=== PATIENT | female | born 1945 | race Hispanic/Latino ===

== ENCOUNTER 2025-08-28 23:49 | Inpatient (IN) | payer OTHER ==
[~2025-08-28] VITALS: Ht 165.1 cm; Wt 80.0 kg
--- NOTE | 2025-08-29 00:21 | EKG ---
[facility] Test Date: 2025-08-28 Test Time: 23:54:40 Pat Name: DOMINICK MOSS Department: [facility] Room: 207 Gender: F Lang Path Therapist: [id number] : [id number] Requested By: ANNY BECERRA Order Number: [id number] Reading MD: Margo Gregg Measurements Intervals [place] Rate: 75 P: 32 [place]: 149 QRS: -2 QRSD: 99 T: 43 QT: 381 QTc: 427 Interpretive Statements Sinus rhythm No previous ECG available for comparison Electronically Signed On 08-29-2025 13:12:34 DRAFTING LAYOUT MAN by Margo Gregg Please click the below link to view image of tracing.
[2025-08-29 00:33] LABS: CREATININE 0.9 mg/dL (0.5-1.0); GLOMERULAR FILTR. RATE CALC 65.0 mL/min (>90); GLUCOSE,RANDOM 172.0 mg/dL (70-105); SODIUM SERUM 139.0 mmol/L (136-145); UREA NITROGEN, BLOOD 13.0 mg/dL (7-18)
[2025-08-29 00:38] LABS: CREATINE KINASE, TOTAL 52.0 U/L (21-232); INR 1.0 (0.85-1.15)
[2025-08-29] MEDS: ASPIRIN 325MG TAB PO ONE (00:40)
[2025-08-29 00:45] LABS: APPEARANCE,URINE CLEAR (CLEAR); GLUCOSE, URINE (UA) NEGATIVE (NEGATIVE); LEUKOCYTE ESTERASE ,URINE NEGATIVE Leu/uL (NEGATIVE); NITRATE,URINE NEGATIVE (NEGATIVE); OCCULT BLOOD,URINE NEGATIVE (NEGATIVE)
[2025-08-29 00:48] LABS: ADD UA MICROSCOPIC NO
--- NOTE | 2025-08-29 00:56 | ERN ---
ED Note History of Present Illness Stated Complaint: CHEST PRESSURE Chief Complaint: Chest Pain Time Seen by MD: 23:55 Time Seen by Midlevel: 23:55 Dictation: The patient is a 80-year-old female with a history of hyperlipidemia, hypertension who presents to the emergency department with complaints of chest pressure onset an hour and a half ago. Patient arrived via EMS. EMS reported a heart rate of 160s to 200s on arrival. AFib with RVR. Reports they gave 20 mg of Cardizem and 400 bolus of NS. Patient denies any history of AFib, does not report any use of blood thinner. Patient reports chest pressure resolved after administration of medications by EMS. Denies any upper respiratory symptoms, denies any shortness of breath. Allergies: Coded Allergies: No Known Drug Allergies (Unverified Allergy, Unknown, 08/29/25) Past Medical History Past Medical History: High Cholesterol, Heart Disease, Hypertension Surgical History: Unknown RN Note Reviewed/Agreed w/PFSH: Yes Review of System Dictation Constitutional: Negative for fever,chills, and weight loss Eyes: Negative for injury, pain,redness, and discharge ENT: Negative for injury,pain or swelling Cardiovascular: Negative for palpitations, and edema positive for chest pain Respiratory: Negative for shortness of breath, cough, and wheezing, Abdomen/GI: Negative for abdominal pain, nausea, vomiting, diarrhea, and constip ation Back: Negative for injury and pain : Negative for injury, bleeding and discharge MS/Extremity: Negative for injury and deformity Skin: Negative for rash, and discoloration Neuro: Negative for headache, weakness, numbness, tingling, and seizure Psych: Negative for suicide ideation, homicidal ideation, and hallucinations Initial Vital Sign VS Vital Signs Date Time Temp Pulse Resp B/P (MAP) Pulse Ox O2 Delivery O2 Flow Rate FiO2 08/28/25 23:54 99.1 80 16 121/62 95 Room Air 0 08/29/25 00:18 21 Physical Exam Dictation Vital Signs reviewed General Appearance: Alert, oriented x 3, no acute distress, well developed, nourished. Head and Face: non-traumatic. Eyes: PERRL, pink conjunctivas, eyelid no trauma, anterior chamber with arcus senilis. Ears: Pinnas intact and no signs of trauma or erythema ear canals clear and no discharge TM no erythema Nose: No discharge, no bleeding. Oropharynx: Mouth normal, tongue pink. pharynx clear,no erythema, tonsils no exudates, no abscesses noted, mucous membrane moist Neck: Supple, non-tender, no thyromegaly, no masses, no JVD, no bruits Breast:Deferred Chest:No tenderness, no crepitus, no paradoxical movement, no retractions Lungs:Clear, well-ventilated, symmetric, no rales, no wheezing, no rhonchi, no stridor, good breath sounds bilaterally Heart: Regular rate, regular rhythm, no murmur, no gallops Vascular: no peripheral edema, Abdomen: Soft, positive bowel sounds, nondistended, no guarding, nontender, no rebound, no masses no hepatomegaly, no splenomegaly, no Llamas's sign, no hernias. Rectal: Deferred Genital: Deferred Neurological: Normal speech, motor function intact, sensory function intact Musculoskeletal: Neck nontender, full range of motion, back nontender, full range of motion, Extremities: nontender, full range of motion Skin: Color pink, dry, no turgor, no rash, no lacerations, no abrasions, no contusions. Lymphatic: Deferred Results (Laboratory/Radiology) Laboratory/Radiology Laboratory Tests Test 08/29/25 00:17 08/29/25 00:34 White Blood Count 7.3 K/uL (4.8-10.8) Red Blood Count 4.41 MIL/uL (4.00-5.50) Hemoglobin 13.5 g/dL (12.0-16.0) Hematocrit 41.1 % (36-48) Mean Corpuscular Volume 93.2 fL (79-99) Mean Corpuscular Hemoglobin 30.6 pg (27.0-33.0) Mean Corpuscular Hemoglobin Concent 32.8 g/dL (32.0-36.0) Red Cell Distribution Width 13.0 % (11.0-15.5) Platelet Count 246 K/uL (130-400) Mean Platelet Volume 10.9 fL (7.5-10.5) H Immature Granulocyte % (Auto) 0.3 % (0-1) Neutrophils (%) (Auto) 63.1 % (40.0-77.0) Lymphocytes (%) (Auto) 28.7 % (21.0-51.0) Monocytes (%) (Auto) 5.5 % (3.0-13.0) Eosinophils (%) (Auto) 1.8 % (0.0-8.0) Basophils (%) (Auto) 0.6 % (0.0-5.0) Neutrophils # (Auto) 4.6 K/uL (1.8-7.7) Lymphocytes # (Auto) 2.1 K/uL (1.0-4.8) Monocytes # (Auto) 0.4 K/uL (0.1-1.0) Eosinophils # (Auto) 0.13 K/uL (0.00-0.70) Basophils # (Auto) 0.04 K/uL (0.00-0.20) Absolute Immature Granulocyte (auto 0.02 K/uL (0-1) Nucleated Red Blood Cells 0.0 % (0.0-0.19) Prothrombin Time 10.6 SEC (9.6-11.6) Prothromb Time International Ratio 1.00 (0.85-1.15) Activated Partial Thromboplast Time 25.4 SEC (26.3-35.5) L Sodium Level 139 mmol/L (136-145) Potassium Level 3.6 mmol/L (3.5-5.1) Chloride Level 103 mmol/L (101-111) Carbon Dioxide Level 27 mmol/L (21-32) Blood Urea Nitrogen 13 mg/dL (7-18) Creatinine 0.9 mg/dL (0.5-1.0) Glomerular Filtration Rate Calc 65 mL/min (>90) Random Glucose 172 mg/dL (70-105) H Total Calcium 8.8 mg/dL (8.5-10.1) Magnesium Level 2.00 mg/dL (1.80-2.40) Total Creatine Kinase 52 U/L (21-232) Troponin I High Sensitivity 20 ng/L (4-50) B-Type Natriuretic Peptide 116 pg/mL (0-100) H Urine Color COLORLESS (YELLOW) Urine Appearance CLEAR (CLEAR) Urine pH 7.0 (5.0-8.0) Urine Specific [place] 1.004 (1.001-1.031) Urine Protein NEGATIVE mg/dL (NEGATIVE) Urine Glucose (UA) NEGATIVE mg/dL (NEGATIVE) Urine Ketones NEGATIVE mg/dL (NEGATIVE) Urine Occult Blood NEGATIVE (NEGATIVE) Urine Nitrate NEGATIVE (NEGATIVE) Urine Bilirubin NEGATIVE mg/dL (NEGATIVE) Urine Urobilinogen 0.2 mg/dL (0.2-1.0) Urine Leukocyte Esterase NEGATIVE Drake/uL REASON: cp ORDERING PHYSICIAN: ANNY BECERRA PROCEDURE: CXR1VW - CHEST 1VW EXAM: CR Chest, single view CLINICAL HISTORY: Chest pain COMPARISON: None FINDINGS: The lungs show no infiltrate or other acute findings. No pleural effusion or pneumothorax. The cardiomediastinal silhouette is within normal limits. No acute osseous abnormality. Degenerative changes in the mid and lower thoracic spine. IMPRESSION: No acute cardiopulmonary pathology is evident. /[facility] Reviewed?: Yes EKG: (+) rhythm (Sinus rhythm) EKG Comment: Date:08/28/2025 Time:2354 Ventricular rate:75 LA interval:149 QRS duration:99 QT/QTc:381/427 EKG interpretation: Sinus rhythm Reviewed by ED Attending no STEMI ED Course ED Course Orders Procedure Category Date Status Time Cbc With Differential LAB 08/29/25 Complete 00:07 Chest 1vw RAD 08/29/25 Resulted 00:07 12 Lead Ekg Tracing- EKG 08/29/25 Complete Technical 00:07 Magnesium LAB 08/29/25 Complete 00:07 Creatine Kinase, Total LAB 08/29/25 Complete 00:07 Troponin I High LAB 08/29/25 Complete Sensitivity 00:07 Aspirin 325mg Tab PHA 08/29/25 Complete (Aspirin 325mg Tab) 00:30 Urinalysis Profile LAB 08/29/25 Complete 00:07 Basic Metabolic Panel LAB 08/29/25 Complete 00:07 Pt And Ptt LAB 08/29/25 Complete 00:07 B-Type Natriuretic LAB 08/29/25 Complete Peptide 00:07 Troponin I High LAB 08/29/25 Logged Sensitivity 01:43 Admit Orders ADM 08/29/25 Transmitted 02:25 Current Medications Medications (Trade) Dose Ordered Sig/Shamar Route PRN Reason Start Time Stop Time Status Last Admin Dose Admin Aspirin (Aspirin 325mg Tab) 325 mg ONCE ONCE PO 08/29/25 00:30 08/29/25 00:31 DC 08/29/25 00:40 Vital Signs Date Time Temp Pulse Resp B/P (MAP) Pulse Ox O2 Delivery O2 Flow Rate FiO2 08/29/25 00:18 99.1 68 13 173/81 99 Room Air* 0 21 08/28/25 23:54 99.1 80 16 121/62 95 Room Air 0 HEART Score Response (Comments) Value History: High suspicion (+2) 2 EKG: Normal 0 Age: > 65yrs (+2) 2 Risk Factors: 1-2 risk factors (+1) 1 Initial Troponin: Normal limit (0) 0 Total 5 Medical Decision Making MDM MDM: The patient is a 80-year-old female with a history of hyperlipidemia, hypertension who presents to the emergency department with complaints of chest pressure onset an hour and a half ago. Patient arrived via EMS. EMS reported a heart rate of 160s to 200s on arrival. AFib with RVR. Reports they gave 20 mg of Cardizem and 400 bolus of NS. Patient denies any history of AFib, does not report any use of blood thinner. Patient reports chest pressure resolved after administration of medications by EMS. Denies any upper respiratory symptoms, denies any shortness of breath CBC showed no leukocytosis, no anemia, chemistry showed no electrolyte imbalance, normal renal function, negative troponin slightly elevated BNP. Chest x-ray showed no acute pathology. Patient with a AFib RVR on initial EKG by EMS. Was converted to sinus rhythm. Patient will be admitted for further evaluation and treatment. Differential diagnosis: ACS, electrolyte imbalance, tachyarrhythmia, pneumonia Comorbidities: Hypertension, hyperlipidemia Tests considered and not ordered secondary to shared decision making include: none Previous outside records reviewed: none Risk of complication and/or morbidity or mortality of patient management: The patient meets criteria for admission. Need for emergency major/minor surgery: No There are no social concerns with this patient. I independently interpreted the tests I ordered (labs, urinalysis, etc.). I discussed the case with the hospitalist for admission. Sarah KIMBLE who accepts admission I discussed the case with the following specialists: none. Historian: pateint. I independently interpreted imaging studies and EKGs that I ordered (US, CT, XR, EKG, etc.). External chart review: none. Medical management and examination interpretation discussions were had by me with other qualified healthcare professionals as indicated for the patient's care. DX & DISP Disposition: Inpatient Decision to Admit Date: Aug 29, 2025 Decision to Admit Time: 02:35 Departure Impression: Primary Impression: New onset a-fib Additional Impression: Chest pain Condition: Stable Referrals: ESEQUIEL ROSEN (PCP) I have reviewed the case, and I agree with, Diagnosis and Plan ANNY BECERRA Aug 29, 2025 00:56
[2025-08-29 01:01] LABS: IMMATURE GRANULOCYTE ABSOLUTE 0.02 K/uL (0-1); NUCLEATED RED BLOOD CELLS 0.0 % (0.0-0.19); PLATELET COUNT (AUTO) 246 K/uL (130-400); RED BLOOD CELL COUNT(AUTO) 4.41 MIL/uL (4.00-5.50); RED CELL DISTRIBUTION WIDTH 13.0 % (11.0-15.5); WHITE BLOOD COUNT (AUTO) 7.3 K/uL (4.8-10.8)
--- NOTE | 2025-08-29 02:03 | HMCIMG ---
EXAM: CR Chest, single view CLINICAL HISTORY: Chest pain COMPARISON: None FINDINGS: The lungs show no infiltrate or other acute findings. No pleural effusion or pneumothorax. The cardiomediastinal silhouette is within normal limits. No acute osseous abnormality. Degenerative changes in the mid and lower thoracic spine. IMPRESSION: No acute cardiopulmonary pathology is evident. /[place]
--- NOTE | 2025-08-29 02:29 | HP ---
[facility] HISTORY AND PHYSICAL Date of Service: Aug 29, 2025 Time of Service: 02:29 Admitting/attending physicians: Dr. Marilu Martinez and Dr. Tinoco HISTORY OF PRESENT ILLNESS: Ms. 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 When she arrived, the EMS reports a heart rate in the 160s to 200s, AFib with RVR. EMS administered 20 mg of Cardizem and a 400 bolus of NS. The Patient does not report using blood thinners and denies having ever had A-fib. After receiving medication from EMS, the patient reports that their chest pressure has subsided and heart rate improved to 80s bpm. She denied any upper respiratory symptoms, and any shortness of breath. The patient reported that she was referred to Dr. Benedict Gregg, air vice marshal for uncontrolled hypertension 2 months ago. She reports she takes her medications as prescribed. She reports that she was pr escribed on hydralazine 25 mg PO daily and her prior blood pressure medication was removed. (The bottle of hydralazine says 25 mg p.o. b.i.d.) She does not know the name of the blood pressure medication that was stopped. She reported that she is also on lisinopril and simvastatin. She states that the air vice marshal did an echocardiogram and carotid Dopplers which she was told that the were normal. VS: HR 80 bmp, RR 16 bmp, BP 121/62, 95% RA, 99.1 F. initial troponin 20. Remarkable lab: Chemistry: Random Glucose 172, B-Natriuretic Peptide 116, Hematology: MPV 10.9, Coagulation: APTT 25.4, UA: Negative Nitrate & Negative Leukocyte Est, Chest X-Ray: No acute cardiopulmonary pathology is evident. In ED the patient received aspirin 325 mg p.o. ED provider request patient be admitted to the hospital with a diagnosis of new onset AFib and chest pain. I assessed the patient at bedside. Heart rate sinus at 59 beats per minute, BP 152/65, respirations 16 bpm, 97% on room air. The patient denied chest pain, shortness of breath. She reports swelling on left lower extremity greater than right. She reports that she has pending sonogram of lower extremities. I informed her of labs, diagnostics, and plan of care. She verbalized understanding and is in agreement with the plan. Plan and assessment are listed below. Addendum: 4:00 a.m. RN reported that the patient's troponin increased from 20 to 166. The patient was started on heparin drip. REVIEW OF SYSTEMS 12-point ROS system reviewed with patient. All pertinent positives mentioned above. Otherwise negative, noncontributory, non-pertinent. PAST MEDICAL HISTORY: As mentioned above. PAST SURGICAL HISTORY: Unknown PAST SOCIAL HISTORY: Denies alcohol, tobacco, illicit drug use. FAMILY HISTORY: Noncontributory Coded Allergies: No Known Drug Allergies (Unverified Allergy, Unknown, 08/29/25) PHYSICAL EXAM GENERAL APPEARANCE: The patient is awake, alert, and oriented, in no acute cardiopulmonary distress. NEUROLOGICAL: Cranial nerves II-XII grossly intact. Motor is 5/5 in bilateral upper and lower extremities proximal to distal. No sensory deficits. HEENT: Face is symmetric. Pupils are equal and reactive. Extraocular movements are intact. NECK: Supple. No JVD. No thyromegaly. No submental, submandibular, pre- /postauricular, occipital or supraclavicular lymphadenopathy. CHEST: Normal chest expansion. No Telemetry. LUNGS: Absence of any rales, rhonchi or any wheezing. CARDIOVASCULAR: Regular. S1 and S2 normal. No appreciable rubs, murmurs or gallops. ABDOMEN: Soft, nontender, and nondistended. There is no rebound, voluntary guarding, or rigidity. : Deferred. No Delgado. EXTREMITIES: Non-edematous and not cyanotic. No clubbing. Good capillary refill. SKIN: No skin breakdown. Vital Sign (Last 24 Hours) 08/29/25 00:18 Temp 99.1 Pulse 68 Resp 13 B/P (MAP) 173/81 Pulse Ox 99 O2 Delivery Room Air* O2 Flow Rate 0 FiO2 21 LABS: Laboratory: Test 08/29/25 00:34 08/29/25 00:17 Range/Units Urine Color COLORLESS YELLOW Urine Appearance CLEAR CLEAR Urine pH 7.0 5.0-8.0 Urine Specific [place] 1.004 1.001-1.031 Urine Protein NEGATIVE NEGATIVE mg/dL Urine Glucose (UA) NEGATIVE NEGATIVE mg/dL Urine Ketones NEGATIVE NEGATIVE mg/dL Urine Occult Blood NEGATIVE NEGATIVE Urine Nitrate NEGATIVE NEGATIVE Urine Bilirubin NEGATIVE NEGATIVE mg/dL Urine Urobilinogen 0.2 0.2-1.0 mg/dL Urine Leukocyte Esterase NEGATIVE NEGATIVE Drake/uL White Blood Count 7.3 4.8-10.8 K/uL Red Blood Count 4.41 4.00-5.50 MIL/uL Hemoglobin 13.5 12.0-16.0 g/dL Hematocrit 41.1 36-48 % Mean Corpuscular Volume 93.2 79-99 fL Mean Corpuscular Hemoglobin 30.6 27.0-33.0 pg Mean Corpuscular Hemoglobin Concent 32.8 32.0-36.0 g/dL Red Cell Distribution Width 13.0 11.0-15.5 % Platelet Count 246 130-400 K/uL Mean Platelet Volume 10.9 H 7.5-10.5 fL Immature Granulocyte % (Auto) 0.3 0-1 % Neutrophils (%) (Auto) 63.1 40.0-77.0 % Lymphocytes (%) (Auto) 28.7 21.0-51.0 % Monocytes (%) (Auto) 5.5 3.0-13.0 % Eosinophils (%) (Auto) 1.8 0.0-8.0 % Basophils (%) (Auto) 0.6 0.0-5.0 % Neutrophils # (Auto) 4.6 1.8-7.7 K/uL Lymphocytes # (Auto) 2.1 1.0-4.8 K/uL Monocytes # (Auto) 0.4 0.1-1.0 K/uL Eosinophils # (Auto) 0.13 0.00-0.70 K/uL Basophils # (Auto) 0.04 0.00-0.20 K/uL Absolute Immature Granulocyte (auto 0.02 0-1 K/uL Nucleated Red Blood Cells 0.0 0.0-0.19 % Prothrombin Time 10.6 9.6-11.6 SEC Prothromb Time International Ratio 1.00 0.85-1.15 Activated Partial Thromboplast Time 25.4 L 26.3-35.5 SEC Sodium Level 139 136-145 mmol/L Potassium Level 3.6 3.5-5.1 mmol/L Chloride Level 103 101-111 mmol/L Carbon Dioxide Level 27 21-32 mmol/L Blood Urea Nitrogen 13 7-18 mg/dL Creatinine 0.9 0.5-1.0 mg/dL Glomerular Filtration Rate Calc 65 >90 mL/min Random Glucose 172 H 70-105 mg/dL Total Calcium 8.8 8.5-10.1 mg/dL Magnesium Level 2.00 1.80-2.40 mg/dL Total Creatine Kinase 52 21-232 U/L Troponin I High Sensitivity 20 4-50 ng/L B-Type Natriuretic Peptide 116 H 0-100 pg/mL DIAGNOSTICS / RADIOLOGY: [ ] ASSESSMENT: Non ST-elevation CO, POA AFib with RVR, new onset, POA Elevated troponins, not POA Uncontrolled hypertension Low-grade fevers (99.1 F X2 in ED) Elevated BNP, slightly Lower extremity edema L>R Hyperlipidemia Diabetes mellitus with hyperglycemia, A1c 6.3 On 08/29/2025 Elevated PTT PLAN: -Admit to PCCU with continuous telemetry monitoring. -Start heparin drip per protocol. -NPO for now. -Nitroglycerin sublingual as needed chest pain -Aspirin 81 mg p.o. daily. -Atorvastatin 40 mg PO daily. -Resume patient's home medication lisinopril 40 mg p.o. daily. -Did not start metoprolol due to patient heart rate 59 bpm during my assessment. -Decision regarding beta blockers initiation deferred to cardiology service. -Troponin levels and EKG series. -Cardiology consult later this am. -2D echo in a.m. with heart clinic to read. -Bilateral venous and arterial Dopplers. -PRN medications for pain management, fever, N/V, constipation, hypertension. -Oxygen supplement as needed to maintain oxygen levels equal to or greater than 92% -Strict I&O. -Fluid restriction 1,500 mls in 24 hours. -Blood pressure checks every 4 hours and as needed. -Reconcile home medications once available. -Glucometer checks before meals and at bedtime with insulin regular sliding scale. -Monitor renal and liver function. -Monitor electrolytes and treat accordingly PRN -AM labs. -GI and DVT prophylaxis -Further plan/orders per hospitalization course. ADVANCED CARE PLANNING Which of the following were discussed? Hospice Care - No Therapeutic option - Yes Advance Directives- Yes Other discussions - Discussed with who? Patient Voluntary nature of this service was explained to the patient? Yes Amount of time spent - ___ Over 35 minutes ____ Reviewed by Physician? ( if this service was preformed by SHYANNE) Yes ATTESTATION BY PHYSICIAN I havwI reviewed the documentation, medical decision making, and treatment plan as noted by the SHYANNE above. I agree with the finding and plan of care. BRIAN ELKINS Aug 29, 2025 02:29 EMELIA TINOCO MD Aug 30, 2025 06:47
--- NOTE | 2025-08-29 03:04 | NUR ---
MEDICAL INSURANCE CODING SPECIALIST SALAZAR AT BEDSIDE AT THIS TIME
--- NOTE | 2025-08-29 03:55 | NUR ---
ATTEMPT TO CALL FIELD DIRECTOR SALAZAR AT THIS TIME REGUARDING TROPONIN LEVEL. PENDING CALL BACK.
--- NOTE | 2025-08-29 04:00 | NUR ---
NOTIFIED KITCHEN WORKER SALAZAR ABOUT TROPONIN LEVEL AT THIS TIME. NO ORDERS GIVEN.
[2025-08-29 06:14] LABS: RAPID GROUP A STREP negative (NEGATIVE)
[2025-08-29 06:16] LABS: SARS-CoV-2, RNA, NAAT NEGATIVE SARS CoV-2 (NEGATIVE)
[2025-08-29 06:24] LABS: INFLUENZA TYPE A Negative For Type A (NEGATIVE); INFLUENZA TYPE B Negative For Type B (NEGATIVE)
[2025-08-29] MEDS ORDERED: MAGNESIUM 2GM PREMIX 50ML 50 ML IV PRN (06:30)
[2025-08-29] MEDS ORDERED: PoTASSium chl 10% ELIXIR 20MEQ 20 MEQ/15 ML UDCUP PO PRN (06:30)
[2025-08-29] MEDS ORDERED: PoTASSium chloRIDE 20MEQ ER 20 MEQ ERTAB PO PRN (06:30)
--- NOTE | 2025-08-29 06:35 | EKG ---
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
[2025-08-29] MEDS ORDERED: NITROGLYCERIN 0.4 MG SL TAB SL PRN (07:00)
--- NOTE | 2025-08-29 07:03 | NUR ---
REPORT GIVEN TO BEA RN AT THIS TIME
[2025-08-29] MEDS ORDERED: LISI40TA15 PO (08:38)
[2025-08-29] MEDS ORDERED: SIMV-43 PO (08:38)
[2025-08-29] MEDS ORDERED: HYDR25TA67 PO (08:38)
[2025-08-29] MEDS: LISINOPRIL 40 MG TABLET PO SCH (08:43)
[2025-08-29] MEDS: ASPIRIN 81MG CHEW TAB PO SCH (08:43)
[2025-08-29 09:31] VITALS: BP 164/63; PULSE 62; RESP 15; TEMP 98.4
[2025-08-29 09:37] LABS: NUCLEATED RED BLOOD CELLS 0.0 % (0.0-0.19); PLATELET COUNT (AUTO) 247.0 K/uL (130-400); RED BLOOD CELL COUNT(AUTO) 4.76 MIL/uL (4.00-5.50); RED CELL DISTRIBUTION WIDTH 13.2 % (11.0-15.5); WHITE BLOOD COUNT (AUTO) 9.0 K/uL (4.8-10.8)
[2025-08-29 09:53] LABS: ASPARTATE AMINOTRANSFERASE 33.0 U/L (10-37); CREATININE 0.8 mg/dL (0.5-1.0); GLOMERULAR FILTR. RATE CALC 75.0 mL/min (>90); GLUCOSE,RANDOM 117.0 mg/dL (70-105); PHOSPHORUS 2.9 mg/dL (2.5-4.9); SODIUM SERUM 139.0 mmol/L (136-145); TOTAL PROTEIN, SERUM 7.8 g/dL (6.0-8.3); UREA NITROGEN, BLOOD 11.0 mg/dL (7-18)
[2025-08-29 10:00] VITALS: BP 165/77; PULSE 56; RESP 14
--- NOTE | 2025-08-29 10:13 | NUR ---
Dr. Ayaan Gregg notified of current troponin levels and elevated blood pressure. Dr. Gregg gave orders for PO Nifedipine x 1, orders carried out, no further needs noted.
[2025-08-29 11:00] VITALS: BP 164/75; PULSE 57; RESP 14
[2025-08-29 11:39] VITALS: TEMP 97.9
--- NOTE | 2025-08-29 13:10 | NUR ---
Dr. Ayaan Gregg at bedside to assess patient, reviewed labs, vitals, and imaging with patient and nurse at bedside. Dr. Gregg aware of elevated blood pressure, gave new orders for hydralazine TID. Orders carried out, no further needs noted.
--- NOTE | 2025-08-29 13:17 | HMCSR ---
APPROVED REPORT EXAM: Two-dimensional and M-mode echocardiogram with Doppler and color Doppler. INDICATION ICD: AFIB RVR, elevated troponin Chest Pain 2D Dimensions RVDd 3.3 cm LVEF(%) 44.2 (>50%) LVED Vol(simp.) 91.0 mL IVSd 1.2 (0.7-1.1cm) FS(%) 22 % LVES Vol(simp.) 40.0 mL LVDd 4.1 (3.8-5.6cm) LA (2D) 3.7 (1.6-4.0cm) LVEF(%, simp.) 56 % PWd 0.9 (0.7-1.1cm) Ao Root(2D) 3.1 (2.0-3.7cm) LA ESV INDEX (BP) 39.88 mL/m2 LVDs 3.2 (2.5-4.0cm) LVOT diam 2.1 (1.8-2.4cm) IVC diam 2.4 cm Deformation Strain Apical 4 -18.6 % Apical 2 -17.1 % Apical 3 -18.5 % Global Strain -18.1 % M-Mode Dimensions EPSS 0.7 cm LA (MM) 3.8 (1.6-4.0cm) Ao Root(MM) 2.6 (2.0-3.7cm) Aortic Valve AoV Vmax 1.3 m/s Ao Peak GR 6.8 mmHg AoV VTI 0.3 m Ao Mean GR 3.8 mmHg Al P1/2T 535 ms Mitral Valve MV E Vmax 74.6 cm/s DECEL Time 197 ms MV A Vmax 88.5 cm/s P 1/2 T 60 ms E/A ratio 0.8 MVA (PHT) 3.7 cm2 TDI E/E' Medial 11.5 E/E' Lateral 9.3 Medial E' Peak V 6.46 cm/s Lateral E' Peak V 8.02 cm/s Pulmonary Valve PV Vmax 0.9 m/s PV VTI 0.22 m PV Mean GR 1.8 mmHg PV Peak GR 3.2 mmHg Tricuspid Valve TR Vmax 1.5 m/s RVSP 8.5 mmHg TR Peak GR 8.5 mmHg Left Ventricle The left ventricle is normal size. There is normal left ventricular wall thickness. LVEF is 55-60%. Indeterminate diastolic dysfunction. Right Ventricle The right ventricle is normal size. The right ventricular systolic function is normal. Atria The left atrium is mildly dilated. The right atrium size is normal. Aortic Valve The aortic valve is normal in structure. Mild aortic regurgitation. There is no aortic valvular stenosis. Mitral Valve The mitral valve is normal in structure. There is no evidence of significant mitral regurgitation. There is no mitral valve stenosis. Tricuspid Valve The tricuspid valve is normal in structure. There is no tricuspid valve regurgitation noted. Pulmonic Valve The pulmonary valve is normal in structure. There is no pulmonic valvular regurgitation. Great Vessels The aortic root is normal in size. IVC is dilated. Pericardium There is no pericardial effusion. Conclusion The left ventricle is normal size. LVEF is 55-60%. Indeterminate diastolic dysfunction. The right ventricle is normal size. The right ventricular systolic function is normal. The left atrium is mildly dilated. The right atrium size is normal. Mild aortic regurgitation. IVC is dilated. There is no pericardial effusion.
--- NOTE | 2025-08-29 13:46 | CONS ---
[facility] CARDIOLOGY CONSULTATION NOTE Date Patient Seen: Aug 29, 2025 Time of Visit: 13:41 Reason for Consultation: [chest pain ] History of Present Illness: [Patient is a 80 yo F with PMH peripheral edema LLE>RLE, HTN who called EMS for chest pain. Upon arrival, she was noted to be in A-fib RVR and converted to sinus bradycardia after 20 mg IV cardiazem was given. Trop has risen since admission 20--166--587. ECG no ST-T changes. She has CACs RCA of 14. She has a carlton echo. ] Past Medical History: [ ] Past Surgical History: [ ] Family History: [ ] Social History: [ ] Habits: [Never] smoker. [Denies] alcohol consumption. [Denies] illicit drug use Home Meds: [ ] Current Meds: [ ] Review of Systems: CONST: [No fever, fatigue, or weight changes.] EYES: [No recent vision problems.] ENT: [No congestion, ear pain, or sore throat.] C/V: [No chest pain, palpitations, or edema.] RESP: [No cough, congestion, wheezing or shortness of breath.] GI: [No abdominal pain, nausea, vomiting, constipation, or diarrhea.] : [No incontinence or dysuria.] SKIN: [No rash.] NEURO: [No headache, focal numbness or weakness, dizziness, or seizures.] PSYCH: [No depression or anxiety.] HEME: [No abnormal bruising or bleeding.] LYMPH: [No swollen glands.] Physical Examination: GENERAL: [No acute distress.] HEAD: [Normal with no signs of head trauma.] EYES: [PERRLA, EOMI, conjunctiva and sclera normal.] ENT: [Hearing grossly intact, normal oropharynx.] NECK: [Supple without JVD. There is no tenderness, lymphadenopathy, or masses. No thyromegaly. Normal carotid upstrokes without bruits.] LUNGS: [Clear breath sounds bilaterally. There are right basilar rales one third of the way up the chest. No wheezes, or rhonchi.] HEART: [Normal rate and rhythm. Normal S1 and S2 without mumurs, gallop or rub.] VASC: [Peripheral pulses +2 bilaterally.] ABD: [Bowel sounds normal, soft, nontender, no masses, no organomegaly. No audible bruits.] : [Not examined] LYMPH: [No lymphadenopathy noted.] EXT: [1+ LLE>RLE edema.] SKIN: [No rashes or lesions noted.] NEURO: [Awake, alert, and oriented x3. No focal sensory or strength deficits noted.] Vital Signs (last 8hr) Date Time Temp Pulse Resp B/P (MAP) Pulse Ox O2 Delivery O2 Flow Rate FiO2 08/29/25 13:25 58 184/64 08/29/25 11:39 97.9 08/29/25 11:00 57 14 164/75 97 Room Air 08/29/25 10:00 56 14 165/77 95 Room Air 08/29/25 09:31 98.4 62 15 164/63 98 Room Air 08/29/25 09:21 Room Air* 0 21 08/29/25 08:34 98.2 56 15 165/62 97 Room Air* 0 21 08/29/25 06:47 53 14 154/54 95 Room Air* 0 21 Laboratory: [ ] Hematology Labs: Test 08/29/25 09:26 08/29/25 00:17 Range/Units White Blood Count 9.0 4.8-10.8 K/uL Red Blood Count 4.76 4.00-5.50 MIL/uL Hemoglobin 14.5 12.0-16.0 g/dL Hematocrit 43.3 36-48 % Mean Corpuscular Volume 91.0 79-99 fL Mean Corpuscular Hemoglobin 30.5 27.0-33.0 pg Mean Corpuscular Hemoglobin Concent 33.5 32.0-36.0 g/dL Red Cell Distribution Width 13.2 11.0-15.5 % Platelet Count 247 130-400 K/uL Mean Platelet Volume 10.3 7.5-10.5 fL Nucleated Red Blood Cells 0.0 0.0-0.19 % Immature Granulocyte % (Auto) 0.3 0-1 % Neutrophils (%) (Auto) 63.1 40.0-77.0 % Lymphocytes (%) (Auto) 28.7 21.0-51.0 % Monocytes (%) (Auto) 5.5 3.0-13.0 % Eosinophils (%) (Auto) 1.8 0.0-8.0 % Basophils (%) (Auto) 0.6 0.0-5.0 % Neutrophils # (Auto) 4.6 1.8-7.7 K/uL Lymphocytes # (Auto) 2.1 1.0-4.8 K/uL Monocytes # (Auto) 0.4 0.1-1.0 K/uL Eosinophils # (Auto) 0.13 0.00-0.70 K/uL Basophils # (Auto) 0.04 0.00-0.20 K/uL Absolute Immature Granulocyte (auto 0.02 0-1 K/uL Chemistry Labs: Test 08/29/25 11:24 08/29/25 09:26 08/29/25 00:17 Range/Units Whole Blood Glucose 115 H 70-110 MG/DL Sodium Level 139 136-145 mmol/L Potassium Level 4.0 3.5-5.1 mmol/L Chloride Level 103 101-111 mmol/L Carbon Dioxide Level 29 21-32 mmol/L Blood Urea Nitrogen 11 7-18 mg/dL Creatinine 0.8 0.5-1.0 mg/dL Glomerular Filtration Rate Calc 75 >90 mL/min Random Glucose 117 H 70-105 mg/dL Total Calcium 9.2 8.5-10.1 mg/dL Phosphorus Level 2.9 2.5-4.9 mg/dL Magnesium Level 2.30 1.80-2.40 mg/dL Total Bilirubin 0.7 0.2-1.0 mg/dL Aspartate Amino Transf (AST/SGOT) 33 10-37 U/L Alanine Aminotransferase (ALT/SGPT) 48 12-78 U/L Alkaline Phosphatase 73 50-136 U/L Troponin I High Sensitivity 587 *H 4-50 ng/L Total Protein 7.8 6.0-8.3 g/dL Albumin 3.9 3.5-5.0 g/dL Hemoglobin A1c 6.3 H 4.0-6.0 % Estimated Average Glucose (eAG) 134 H 70-126 mg/dL Total Creatine Kinase 52 21-232 U/L B-Type Natriuretic Peptide 116 H 0-100 pg/mL Thyroid Stimulating Hormone (TSH) 2.21 0.36-3.74 uIU/mL Coagulation Labs: Test 08/29/25 11:08 08/29/25 00:17 Range/Units Activated Partial Thromboplast Time > 139.0 #*H 26.3-35.5 SEC Prothrombin Time 10.6 9.6-11.6 SEC Prothromb Time International Ratio 1.00 0.85-1.15 Diagnostics / Radiology: [Copy/Paste Echos/Imaging Report here] Assessment: [ ] Plan: [ #Chest pain -Trop 20--166--589, will trend troponin -s/p aspirin load 325 mg x1 -c/w aspirin 81 mg qd, atorvastatin 40 mg qhs, heparin gtt -ECG no ST-T changes -2d echo is normal -CCTA ordered for AM, baseline HR is bradycardia #New paroxysmal a-fib -improved after 20 mg IVP cardiazem in EMS and now sinus bradycardia #HTN -avoid AV ana lilia blockers due to bradycardia -increased hydralazine 25 mg bid to 50 mg tid, c/w lisinopril 40 mg qd Thank you for this consult. We will follow along. Margo Gregg MD] MARGO GREGG MD Aug 29, 2025 13:46
[2025-08-29 16:00] VITALS: BP 137/85; PULSE 72; RESP 18; TEMP 97.4
--- NOTE | 2025-08-29 16:37 | HMCIMG ---
EXAMINATION: Bilateral lower extremity venous Doppler ultrasound. INDICATION: lower edema L>R TECHNIQUE: Real-time grayscale, color Doppler, and spectral Doppler imaging performed of the deep venous system from the common femoral veins through the calf veins bilaterally. Vein compressibility assessed with probe pressure. COMPARISON: No previous venous doppler, arterial doppler 08/29/2025 FINDINGS: RIGHT LOWER LIMB: Deep veins, including right common femoral vein, great saphenous vein junction, right femoral vein (proximal, mid and distal CFV), right popliteal vein, right posterior tibial vein): Veins are patent and fully compressible. No intraluminal thrombus identified. Color Doppler: Normal spontaneous flow demonstrated. Spectral Doppler: Normal phasicity with respiration compression. Soft tissues: soft tissue edema is noted. LEFT LOWER LIMB: Deep veins, including left common femoral vein, great saphenous vein junction, left femoral (proximal, mid and distal), left popliteal vein, left posterior tibial vein): Veins are patent and fully compressible. No intraluminal thrombus identified. Color Doppler: Normal spontaneous flow demonstrated. Spectral Doppler: Normal phasicity with respiration. Soft tissues: soft tissue edema is noted Impression 1. No evidence of deep venous thrombosis in either lower extremity. 2. Normal bilateral venous Doppler study. 3. Bilateral soft tissue edema is noted. /[place]
[2025-08-29 20:00] VITALS: BP 154/85; PULSE 67; RESP 18; TEMP 97.9
[2025-08-30] VITALS (11 sets, daily range): BP systolic 91–155; BP diastolic 44–71; PULSE 70–76; RESP 10–22; TEMP 97.8–98.8; O2SAT 97
--- NOTE | 2025-08-30 05:53 | HMCIMG ---
EXAMINATION: DUPLEX ULTRASOUND EXAMINATION OF THE BILATERAL LOWER EXTREMITY ARTERIES. CLINICAL HISTORY: Peripheral arterial disease. COMPARISON: None. FINDINGS: Peak systolic velocities within the right lower arteries are as follows: Common femoral artery: 65 cm/s. Superficial femoral artery: 127 cm/s at proximal, 98 cm/s at mid, and 105 cm/s at distal segments. Popliteal artery: 77 cm/s at proximal and 95 cm/s at distal segments. Posterior tibial artery: 121 cm/s. Anterior tibial artery: 66 cm/s. Dorsalis pedis artery: 41 cm/s. The right lower limb arteries demonstrate triphasic to biphasic waveforms in all arteries. Peak systolic velocities within the left lower arteries are as follows: Common femoral artery: 112 cm/s. Superficial femoral artery: 88 cm/s at proximal, 77 cm/s at mid, and 86 cm/s at distal segments. Popliteal artery: 75 cm/s at proximal and 75 cm/s at distal segments. Posterior tibial artery: 112 cm/s. Anterior tibial artery: 66 cm/s. Dorsalis pedis artery: 83 cm/s. The left lower limb arteries demonstrate triphasic to biphasic waveforms in all arteries. There is intimal wall thickening and multilevel atherosclerosis in both the lower limb arteries. IMPRESSION: Mild intimal wall thickening and multilevel atherosclerosis in both the lower limb arteries. Both lower limb arteries demonstrate triphasic to biphasic waveforms. No flow limiting lesions. /[place]
[2025-08-30 06:24] LABS: NUCLEATED RED BLOOD CELLS 0.0 % (0.0-0.19); PLATELET COUNT (AUTO) 248.0 K/uL (130-400); RED BLOOD CELL COUNT(AUTO) 4.7 MIL/uL (4.00-5.50); RED CELL DISTRIBUTION WIDTH 13.1 % (11.0-15.5); WHITE BLOOD COUNT (AUTO) 8.3 K/uL (4.8-10.8)
[2025-08-30 06:39] LABS: CREATININE 0.8 mg/dL (0.5-1.0); GLOMERULAR FILTR. RATE CALC 75.0 mL/min (>90); GLUCOSE,RANDOM 118.0 mg/dL (70-105); PHOSPHORUS 2.7 mg/dL (2.5-4.9); SODIUM SERUM 143.0 mmol/L (136-145); UREA NITROGEN, BLOOD 12.0 mg/dL (7-18)
[2025-08-30] MEDS: LACTULOSE 20 GM/30 ML UDCUP PO PRN (08:47)
--- NOTE | 2025-08-30 10:19 | PN ---
[facility] CARDIOLOGY PROGRESS NOTE Date Patient Seen: Aug 30, 2025 Time of Visit: 10:07 Interval History: [No acute events overnight , troponin peaked at 587 and has downtrended to 100 , 2D echo showed LVEF of 55-60% , indeterminate diastolic function with mild aortic regurgitation , the patient is scheduled for coronary CT today. Currently denies any chest pain , palpitations , dyspnea or any other anginal equivalents. Telemetry shows sinus rhythm, in the 70s ] Physical Examination: GENERAL: [No acute distress.] HEAD: [Normal with no signs of head trauma.] EYES: [PERRLA, EOMI, conjunctiva and sclera normal.] ENT: [Hearing grossly intact, normal oropharynx.] NECK: [Supple without JVD. There is no tenderness, lymphadenopathy, or masses. No thyromegaly. Normal carotid upstrokes without bruits.] LUNGS: [Clear breath sounds bilaterally. . No wheezes, or rhonchi.] HEART: [Normal rate and rhythm. Normal S1 and S2 without murmurs, gallop or rub.] VASC: [Peripheral pulses +2 bilaterally.] ABD: [Bowel sounds normal, soft, nontender, no masses, no organomegaly. No audible bruits.] : [Not examined] LYMPH: [No lymphadenopathy noted.] EXT: [1+ LLE>RLE edema.] SKIN: [No rashes or lesions noted.] NEURO: [Awake, alert, and oriented x3. No focal sensory or strength deficits noted.] Laboratory: [ ] Hematology Labs: Test 08/30/25 06:10 08/29/25 00:17 Range/Units White Blood Count 8.3 4.8-10.8 K/uL Red Blood Count 4.70 4.00-5.50 MIL/uL Hemoglobin 14.1 12.0-16.0 g/dL Hematocrit 43.4 36-48 % Mean Corpuscular Volume 92.3 79-99 fL Mean Corpuscular Hemoglobin 30.0 27.0-33.0 pg Mean Corpuscular Hemoglobin Concent 32.5 32.0-36.0 g/dL Red Cell Distribution Width 13.1 11.0-15.5 % Platelet Count 248 130-400 K/uL Mean Platelet Volume 9.9 7.5-10.5 fL Nucleated Red Blood Cells 0.0 0.0-0.19 % Immature Granulocyte % (Auto) 0.3 0-1 % Neutrophils (%) (Auto) 63.1 40.0-77.0 % Lymphocytes (%) (Auto) 28.7 21.0-51.0 % Monocytes (%) (Auto) 5.5 3.0-13.0 % Eosinophils (%) (Auto) 1.8 0.0-8.0 % Basophils (%) (Auto) 0.6 0.0-5.0 % Neutrophils # (Auto) 4.6 1.8-7.7 K/uL Lymphocytes # (Auto) 2.1 1.0-4.8 K/uL Monocytes # (Auto) 0.4 0.1-1.0 K/uL Eosinophils # (Auto) 0.13 0.00-0.70 K/uL Basophils # (Auto) 0.04 0.00-0.20 K/uL Absolute Immature Granulocyte (auto 0.02 0-1 K/uL Chemistry Labs: Test 08/30/25 06:10 08/30/25 00:14 08/29/25 20:19 08/29/25 09:26 Range/Units Sodium Level 143 136-145 mmol/L Potassium Level 4.2 3.5-5.1 mmol/L Chloride Level 107 101-111 mmol/L Carbon Dioxide Level 27 21-32 mmol/L Blood Urea Nitrogen 12 7-18 mg/dL Creatinine 0.8 0.5-1.0 mg/dL Glomerular Filtration Rate Calc 75 >90 mL/min Random Glucose 118 H 70-105 mg/dL Total Calcium 8.8 8.5-10.1 mg/dL Phosphorus Level 2.7 2.5-4.9 mg/dL Magnesium Level 2.10 1.80-2.40 mg/dL Troponin I High Sensitivity 100 *H 4-50 ng/L Whole Blood Glucose 152 H 70-110 MG/DL Total Bilirubin 0.7 0.2-1.0 mg/dL Aspartate Amino Transf (AST/SGOT) 33 10-37 U/L Alanine Aminotransferase (ALT/SGPT) 48 12-78 U/L Alkaline Phosphatase 73 50-136 U/L Total Protein 7.8 6.0-8.3 g/dL Albumin 3.9 3.5-5.0 g/dL Test 08/29/25 00:17 Range/Units Hemoglobin A1c 6.3 H 4.0-6.0 % Estimated Average Glucose (eAG) 134 H 70-126 mg/dL Total Creatine Kinase 52 21-232 U/L B-Type Natriuretic Peptide 116 H 0-100 pg/mL Thyroid Stimulating Hormone (TSH) 2.21 0.36-3.74 uIU/mL Coagulation Labs: Test 08/30/25 06:10 08/29/25 00:17 Range/Units Activated Partial Thromboplast Time 73.2 H 26.3-35.5 SEC Prothrombin Time 10.6 9.6-11.6 SEC Prothromb Time International Ratio 1.00 0.85-1.15 Diagnostics / Radiology: [Copy/Paste Echos/Imaging Report here] Impression and Plan: Hypertension Hyperlipidemia #Chest pain -The patient presented to ED endorsing left anterior chest pressure -Trop 20--166-- peaked at 587 and has down trended to 100 -Presenting ECG sinus bradycardia , no acute ischemia -The patient received loading dose of ASA 325 mg x1 -2D echo showed LVEF of 55-60% , indeterminate diastolic function with mild aortic regurgitation -c/w aspirin 81 mg qd, atorvastatin 40 mg qhs, heparin gtt -CCTA ordered for AM, baseline HR is bradycardia #New paroxysmal a-fib -Patient was noted with Afib with RVR on admission with VR in the 130-140s -improved after 20 mg IVP cardiazem in EMS -Current review of telemetry shows sinus rhythm 70 bpm -keep on telemetry and monitor / replace electrolytes as needed #HTN -Blood pressure is averaging 140-150s -avoid AV ana lilia blockers due to bradycardia -Continue hydralazine 50 mg tid and lisinopril 40 mg qd Thank you for this consult. We will follow along formal recommendations pending cardiac CT ] Eros Gregg MD ATTESTATION BY PHYSICIAN I have seen and examined the patient, reviewed the above documentation, participated in medical decision making, made necessary modifications, and agree with the treatment plan as documented by my mid-level provider above. MD DONNA Ramos JAMES R MD Aug 30, 2025 10:19
[2025-08-30] MEDS ORDERED: IOHEXOL 350 MG/ML 100ML INFUS..BTL IV ONE (10:32)
--- NOTE | 2025-08-30 11:38 | EKG ---
[facility] Test Date: 2025-08-30 Test Time: 09:03:44 Pat Name: DOMINICK MOSS Department: [facility] Room: 207 1 Gender: F Community Education Coordinator: JESSICA : 1945 Requested By: BRIAN ELKINS Order Number: [id number] Reading MD: Endy Cherry Measurements Intervals [place] Rate: 74 P: 13 OR: 126 QRS: -2 QRSD: 88 T: 16 QT: 392 QTc: 435 Interpretive Statements Normal sinus rhythm Compared to ECG 08/29/2025 06:25:43 No significant changes Electronically Signed On 08-30-2025 12:16:31 [employer] by Endy Cherry Please click the below link to view image of tracing.
--- NOTE | 2025-08-30 15:02 | NUR ---
DCP: HOME Pt lives in mobile home with her Yehuda Rubio [phone]. Pt reports she is very independent of her self care and home management. transports as needed. PCP is Alvin Morrison and uses [facility] Cho for rx. Pt denies dc needs and will return home at ri.
--- NOTE | 2025-08-30 16:53 | PN ---
[facility] PROGRESS NOTE Date of Service: Aug 30, 2025 Time of Service: 16:43 SUBJECTIVE: Ms. Rubio is a 80-year-old female with a history of hyperlipidemia, hypertension, hypercholesteremia and heart disease who presented [place] [facility] [place] EMS for evaluation of chest pressure onset an hour and a half [employer]. When she arrived, the EMS reports a heart rate in the 160s to 200s, AFib with RVR. EMS administered 20 mg of Cardizem and a 400 bolus of NS. The Patient does not report using blood thinners and denies having ever had A-fib. After receiving medication from EMS, the patient reports that their chest pressure has subsided and heart rate improved to 80s bpm. She denied any upper respiratory symptoms, and any shortness of breath. The patient reported that she was referred to Dr. Benedict Gregg, status controller for uncontrolled hypertension 2 months ago. She reports she takes her medications as prescribed. She reports that she was prescribed on hydralazine 25 mg PO daily and her prior blood pressure medication was removed. (The bottle of hydralazine says 25 mg p.o. b.i.d.) She does not know the name of the blood pressure medication that was stopped. She reported that she is also on lisinopril and simvastatin. She states that the status controller did an echocardiogram and carotid Dopplers which she was told that the were normal. In ED her vital signs are HR 80 bmp, RR 16 bmp, BP 121/62, 95% RA, 99.1 F. initial troponin 20. and her labs are Chemistry: Random Glucose 172, B-Natriuretic Peptide 116, Hematology: MPV 10.9, Coagulation: APTT 25.4, UA : Negative Nitrate & Negative Leukocyte Est, Chest X-Ray showed No acute cardiopulmonary pathology is evident. The patient received aspirin 325 mg p.o. The patient is admitted to the hospital with a diagnosis of new onset AFib and chest pain. Overnight her troponin levels increased from 20 to 166 so the patient was started on heparin drip. Cardiology was consulted and he recommended CCTA and increased hydralazine 25mg bid to 50mg tid, c/w lisinopril 40mg qd. 08/30/2025: Patient is seen and evaluated in room 207 and she complained that she is constipated today. On examination there is edema of left leg. Her vitals are in the normal range. Her labs are normal except for troponin 100. She had CCTA today and we are awaiting for the report. We will follow cardiology recommendations. REVIEW OF SYSTEMS CONSTITUTIONAL: Denies fevers, chills, or night sweats. NEUROLOGICAL: Denies headache, amaurosis fugax, motor weakness, sensory deficit, vertigo/spinning sensation, gait abnormalities, or tremors. ENT: No hearing loss, otalgia, otorrhea, rhinitis, rhinorrhea, hoarseness, or sore throat. CARDIOVASCULAR: Denies any exertional angina, dyspnea on exertion, palpitations, life-threatening arrhythmias. PULMONARY: Denies any shortness of breath, cough, phlegm/sputum, hemoptysis, pleuritic chest pain. GASTROINTESTINAL: Constipation Denies any type of dysphagia to either liquids or solids. Denies nausea, vomiting, pyrosis, early satiety, abdominal pain, diarrhea, or changes in stool consistency or caliber. Denies coffee-ground emesis, hematemesis, hematochezia, or melanotic stools. GENITOURINARY: Denies frequency, urgency, nocturia, hematuria or incontinence (Storage/Irritative symptoms.) Low urinary stream, straining to void, urinary intermittency or hesitancy, splitting of the voiding stream, terminal dribbling. DERMATOLOGIC: No rash, pain or swelling. PHYSICAL EXAM GENERAL APPEARANCE: The patient is awake, alert, and oriented, in no acute cardiopulmonary distress. NEUROLOGICAL: Cranial nerves II-XII grossly intact. Motor is 5/5 in bilateral upper and lower extremities proximal to distal. No sensory deficits. HEENT: Face is symmetric. Pupils are equal and reactive. Extraocular movements are intact. NECK: Supple. No JVD. No thyromegaly. No submental, submandibular, pre- /postauricular, occipital or supraclavicular lymphadenopathy. CHEST: Normal chest expansion. No Telemetry. LUNGS: Absence of any rales, rhonchi or any wheezing. CARDIOVASCULAR: Regular. S1 and S2 normal. No appreciable rubs, murmurs or gallops. ABDOMEN: Soft, nontender, and nondistended. There is no rebound, voluntary guarding, or rigidity. : Deferred. No Delgado. EXTREMITIES: edema of the left leg and not cyanotic. No clubbing. Good capillary refill. SKIN: No skin breakdown. Vital Signs (last 8hr) Date Time Temp Pulse Resp B/P (MAP) Pulse Ox O2 Delivery O2 Flow Rate FiO2 08/30/25 15:19 98.2 71 19 126/60 97 Room Air 08/30/25 14:10 79 147/64 08/30/25 11:13 98.2 73 14 129/61 98 Room Air 08/30/25 09:45 76 19 113/54 94 Room Air 08/30/25 09:39 74 22 91/44 98 Room Air LABS: Laboratory: Test 08/30/25 16:19 08/30/25 11:43 08/30/25 06:10 08/30/25 00:14 Range/Units Whole Blood Glucose 126 H 70-110 MG/DL Activated Partial Thromboplast Time 58.9 H 26.3-35.5 SEC White Blood Count 8.3 4.8-10.8 K/uL Red Blood Count 4.70 4.00-5.50 MIL/uL Hemoglobin 14.1 12.0-16.0 g/dL Hematocrit 43.4 36-48 % Mean Corpuscular Volume 92.3 79-99 fL Mean Corpuscular Hemoglobin 30.0 27.0-33.0 pg Mean Corpuscular Hemoglobin Concent 32.5 32.0-36.0 g/dL Red Cell Distribution Width 13.1 11.0-15.5 % Platelet Count 248 130-400 K/uL Mean Platelet Volume 9.9 7.5-10.5 fL Nucleated Red Blood Cells 0.0 0.0-0.19 % Sodium Level 143 136-145 mmol/L Potassium Level 4.2 3.5-5.1 mmol/L Chloride Level 107 101-111 mmol/L Carbon Dioxide Level 27 21-32 mmol/L Blood Urea Nitrogen 12 7-18 mg/dL Creatinine 0.8 0.5-1.0 mg/dL Glomerular Filtration Rate Calc 75 >90 mL/min Random Glucose 118 H 70-105 mg/dL Total Calcium 8.8 8.5-10.1 mg/dL Phosphorus Level 2.7 2.5-4.9 mg/dL Magnesium Level 2.10 1.80-2.40 mg/dL Troponin I High Sensitivity 100 *H 4-50 ng/L Test 08/29/25 09:26 08/29/25 05:52 08/29/25 00:34 08/29/25 00:17 Range/Units Total Bilirubin 0.7 0.2-1.0 mg/dL Aspartate Amino Transf (AST/SGOT) 33 10-37 U/L Alanine Aminotransferase (ALT/SGPT) 48 12-78 U/L Alkaline Phosphatase 73 50-136 U/L Total Protein 7.8 6.0-8.3 g/dL Albumin 3.9 3.5-5.0 g/dL Influenza Type A Antigen Negative For Type A NEGATIVE Influenza Type B Antigen Negative For Type B NEGATIVE SARS-CoV-2, RNA, NAAT NEGATIVE SARS CoV-2 NEGATIVE Group A Streptococcus Rapid negative NEGATIVE Urine Color COLORLESS YELLOW Urine Appearance CLEAR CLEAR Urine pH 7.0 5.0-8.0 Urine Specific [place] 1.004 1.001-1.031 Urine Protein NEGATIVE NEGATIVE mg/dL Urine Glucose (UA) NEGATIVE NEGATIVE mg/dL Urine Ketones NEGATIVE NEGATIVE mg/dL Urine Occult Blood NEGATIVE NEGATIVE Urine Nitrate NEGATIVE NEGATIVE Urine Bilirubin NEGATIVE NEGATIVE mg/dL Urine Urobilinogen 0.2 0.2-1.0 mg/dL Urine Leukocyte Esterase NEGATIVE NEGATIVE Drake/uL Immature Granulocyte % (Auto) 0.3 0-1 % Neutrophils (%) (Auto) 63.1 40.0-77.0 % Lymphocytes (%) (Auto) 28.7 21.0-51.0 % Monocytes (%) (Auto) 5.5 3.0-13.0 % Eosinophils (%) (Auto) 1.8 0.0-8.0 % Basophils (%) (Auto) 0.6 0.0-5.0 % Neutrophils # (Auto) 4.6 1.8-7.7 K/uL Lymphocytes # (Auto) 2.1 1.0-4.8 K/uL Monocytes # (Auto) 0.4 0.1-1.0 K/uL Eosinophils # (Auto) 0.13 0.00-0.70 K/uL Basophils # (Auto) 0.04 0.00-0.20 K/uL Absolute Immature Granulocyte (auto 0.02 0-1 K/uL Prothrombin Time 10.6 9.6-11.6 SEC Prothromb Time International Ratio 1.00 0.85-1.15 Hemoglobin A1c 6.3 H 4.0-6.0 % Estimated Average Glucose (eAG) 134 H 70-126 mg/dL Total Creatine Kinase 52 21-232 U/L B-Type Natriuretic Peptide 116 H 0-100 pg/mL Thyroid Stimulating Hormone (TSH) 2.21 0.36-3.74 uIU/mL Current Medications Medications (Trade) Dose Ordered Sig/Shamar Route PRN Reason Start Time Stop Time Status Last Admin Dose Admin Acetaminophen (TYLenol 325MG TAB) 650 mg Q6H PRN PO FEVER/MILD PAIN LEVEL 1-3 08/29/25 04:30 09/28/25 04:29 08/29/25 20:26 650 MG Acetaminophen (TYLenol 650MG SUPPOSITORY) 650 mg Q6H PRN RC FEVER / MILD PAIN 1-3 IF NPO 08/29/25 04:30 09/28/25 04:29 Aspirin (Aspirin 81mg Chew Tab) 81 mg DAILY PO 08/29/25 09:00 09/28/25 08:59 08/30/25 08:44 81 MG Atorvastatin Calcium (LIPItor 40MG) 40 mg HS PO 08/29/25 04:10 09/28/25 04:09 08/29/25 20:25 40 MG Docusate Sodium (COLace 100MG CAP) 100 mg BID PRN PO c 08/29/25 04:30 09/28/25 04:29 08/30/25 08:50 100 MG Heparin Sodium (Porcine) (HEParin 5,000 UNIT VIAL) *calculation based on ACTUAL B... AD PRN IV HEPARIN PROTOCOL 08/29/25 06:00 09/28/25 05:59 08/29/25 05:23 6,000 UNIT Heparin Sodium/ Dextrose 250 ml @ 0 mls/hr PROTOCOL IV 08/29/25 04:30 09/28/25 04:29 08/30/25 06:11 0 MLS/HR Heparin Sodium/ Dextrose 250 ml @ 0 mls/hr Q6H IV 08/29/25 06:00 08/29/25 06:16 DC 08/29/25 05:25 13.65 MLS/HR Hydralazine HCl ([id number] TAB) 50 mg TID PO 08/29/25 14:00 09/28/25 13:59 08/30/25 14:10 25 MG Insulin Human Regular (humuLIN R 100 UNIT/ML 3ML) INSULIN SLIDING SCAL... ACHS SQ 08/29/25 07:30 09/28/25 07:29 Labetalol HCl (TRANdate 20MG SYG) 10 mg Q2H PRN IV SBP GREATER THAN 160 08/29/25 04:30 09/28/25 04:29 Lactulose (Constulose 20gm/ 30ml Udcup) 20 gm Q6H PRN PO CONSTIPATION 08/29/25 04:30 09/28/25 04:29 08/30/25 08:47 20 GM Lisinopril (Prinivil 40mg) 40 mg DAILY PO 08/29/25 09:00 09/28/25 08:59 08/30/25 08:43 40 MG Magnesium Sulfate 50 ml @ 0 mls/hr PROTOCOL PRN IV low mag level 08/29/25 06:30 09/28/25 06:29 Nitroglycerin (Nitrostat) 0.4 mg AD PRN SL CHEST PAIN 08/29/25 07:00 09/28/25 06:59 Ondansetron HCl (zoFRAN 4MG INJ) 4 mg Q6H PRN IVP NAUSEA/VOMITING 08/29/25 04:30 09/28/25 04:29 Potassium Chloride 100 ml @ 100 mls/hr AD PRN IV POTASSIUM PROTOCOL 08/29/25 06:30 09/28/25 06:29 Potassium Chloride (K-Dur/Klor-Con 20meq) 20 meq AD PRN PO POTASSIUM PROTOCOL 08/29/25 06:30 09/28/25 06:29 Potassium Chloride (KCl 10% Elixir 20meq/15ml) 20 meq AD PRN PO POTASSIUM PROTOCOL 08/29/25 06:30 09/28/25 06:29 DIAGNOSTICS / RADIOLOGY: [ ] ASSESSMENT: Non ST-elevation VA, POA AFib with RVR, new onset, POA Elevated troponins, not POA Uncontrolled hypertension Low-grade fevers (99.1 F X2 in ED) Elevated BNP, slightly Lower extremity edema L>R Hyperlipidemia Diabetes mellitus with hyperglycemia, A1c 6.3 On 08/29/2025 Elevated PTT Constipation PLAN: Non ST-elevation VA, POA She is not having any symptoms today. Her troponin levels are 20>116>587>285>100. Her EKG shows no ST-T changes. She is on heparin protocol. Cardiology is consulted and they recommended CCTA. She underwent CCTA today and we are waiting for the report. AFib with RVR, new onset, POA On admission her EKG show Afib with RVR with HR of 100's to 160's. It got relieved after administration of 20mg cardizem and NS. Now her EKG is normal. Cardiology is on board. Elevated troponins, not POA Her troponin levels are 20>116>587>285>100. Cardiology is consulted and they recommended CCTA. She underwent CCTA today and we are waiting for the report. Uncontrolled hypertension On presentation her blood pressure is 173/81. Cardiology was consulted and the recommended hydralazine 25 to 50mg TID and lisinopril 40mg qd. Today her blood pressure is 126/60. Continue hydralazine 50mg TID and lisinopril 40mg qd. Low-grade fevers (99.1 F X2 in ED) Her vitals show her temperature today is 98.2. She is on tylenol PRN for fever. Elevated BNP, slightly Her BNP is 116. Echocardiogram show LVEF is 55 to 60%. Lower extremity edema L>R On examination there is edema of the left leg. Her BNP is 116. Echocardiogram show LVEF is 55 to 60%. Venous doppler showed no DVT. Arterial US is mild intimal wall thickening and multilevel atherosclerosis in both the lower limb arteries, both lower limb arteries demonstrate triphasic to biphasic waveforms, no flow-limiting lesions Hyperlipidemia Continue Atorvastatin 40mg. Diabetes mellitus with hyperglycemia, A1c 6.3 On 08/29/2025 Today her blood glucose level is 126. She is on sliding scale insulin. Elevated PTT She is on heparin for NSTEMI. PTT levels are 25.4->139.0-103.3-70.0-73.2-58.9. Constipation She complained of constipation today. She is on Colace and lactulose. She is on heart healthy diet. DVT prophylaxis with SCD. Gi prophylaxis with Protonix. ATTESTATION BY PHYSICIAN I have seen and examined the patient. I reviewed the documentation, medical decision making, and treatment plan as noted by the resident physician above. I agree with the findings and plan of care. ZIA CASTILLO MD, AKSHAY MD Aug 30, 2025 16:53
--- NOTE | 2025-08-30 17:25 | NUR ---
PT TRANSFERRED TO ROOM 205 WITH TELE PACK AND REPORT GIVEN TO ELSA GONGORA RN.
--- NOTE | 2025-08-30 18:16 | CARDIOLOGY ---
RAD REPORT: CORNARY CT ANGIO RADIOLOGY REPORT: CORONARY CT ANGIOGRAPHY DATE: Aug 30, 2025 QUALITY: Excellent CLINICAL HISTORY AND INDICATION: [ elevated Troponin ] TECHNIQUE: After obtaining a preliminary fat pressroom worker image, contrast imaging performed on an [employer] [id number] scanner. A dedicated, limited window, coronary imaging protocol was used, with single breath-hold, retrospective ECG gating, and automated arrhythmia rejection. 100 cc of low osmolar contrast agent: Omnipaque 350 was delivered via a 18-gauge IV catheter in the right antecubital fossa, using a power injector and followed by 60 cc of normal saline bolus as a chaser. Collimated images were reformatted at 0.5 mm intervals, and sent to an offline independent workstation for interpretation, using 3D anatomic reconstructions: Curved multiplanar reconstructions, maximum intensity projections, and multiplanar imaging. No metoprolol was administered prior to scanning due to low baseline heart rate. No SL nitroglycerin was given. CORONARY ARTERY DESCRIPTIONS: The coronary arteries arise in normal position. Left main coronary artery: Normal caliber vessel that bifurcates into the LAD and LCx. No stenosis. Left anterior descending coronary artery: Normal caliber vessel and gives rise to diagonal and septal branches. No stenosis. Left circumflex coronary artery: Normal caliber, nondominant and gives rise to a large OM branch. No stenosis. Right coronary artery: Large, dominant vessel giving rise to the PL and PDA branches. No stenosis. CAD-RADs: 0, absence of CAD. Thoracic Aorta: Normal diameter. Margo Gregg MD Cardiovascular Disease [facility] MARGO GREGG MD Aug 30, 2025 18:16
[2025-08-31 03:21] VITALS: BP 140/62; PULSE 72; RESP 20; TEMP 97
[2025-08-31 05:48] LABS: NUCLEATED RED BLOOD CELLS 0.0 % (0.0-0.19); PLATELET COUNT (AUTO) 228.0 K/uL (130-400); RED BLOOD CELL COUNT(AUTO) 4.27 MIL/uL (4.00-5.50); RED CELL DISTRIBUTION WIDTH 13.2 % (11.0-15.5); WHITE BLOOD COUNT (AUTO) 8.7 K/uL (4.8-10.8)
[2025-08-31 06:00] LABS: CREATININE 0.8 mg/dL (0.5-1.0); GLOMERULAR FILTR. RATE CALC 75.0 mL/min (>90); GLUCOSE,RANDOM 115.0 mg/dL (70-105); SODIUM SERUM 142.0 mmol/L (136-145); UREA NITROGEN, BLOOD 12.0 mg/dL (7-18)
[2025-08-31 07:00] VITALS: BP 131/58; PULSE 75; RESP 20; TEMP 98.9
--- NOTE | 2025-08-31 07:38 | NUR ---
AT THIS TIME CALLED HOSPITALIST ANSWERING SERVICE TO REPORT UNRELIEVED PAIN BEHIND LEFT KNEE AND RIGHT UPPER ARM. PATIENT DENIES ANY CHEST PAIN. RESPIRATIONS EVEN AND UNLABORED. NO S/S OF DISTRESS. ON ROOM AIR. PATIENT STATES PAIN LEVEL IS A 6. PER PATIENT SHE IS HAVING DIFFICULTY BEARING WEIGHT ON LEFT LEG BECAUSE IT HURTS IN LEFT INNER KNEE AND BEHIND KNEE. PATIENT ALSO COMPLAINS OF PAIN WHEN BENDING AND EXTENDING LEFT KNEE. PATIENT STATES SHE HAS PAIN TO RIGHT UPPER ARM WHEN SHE ATTEMPTS TO LIFT UP ARM. PATIENT VERBALIZED THAT SINCE EARLY YESTERDAY MORNING SHE HAD BEGUN TO EXPERIENCE MINIMAL PAIN. PENDING CALL BACK.
[2025-08-31 08:00] VITALS: O2SAT 97
--- NOTE | 2025-08-31 08:24 | PN ---
[facility] CARDIOLOGY PROGRESS NOTE Date Patient Seen: Aug 31, 2025 Time of Visit: 08:23 Interval History: [No acute events overnight , troponin peaked at 587 and has downtrended to 100 , 2D echo showed LVEF of 55-60% , indeterminate diastolic function with mild aortic regurgitation , the patient is scheduled for coronary CT today. Currently denies any chest pain , palpitations , dyspnea or any other anginal equivalents. Telemetry shows sinus rhythm, in the 70s ] Physical Examination: GENERAL: [No acute distress.] HEAD: [Normal with no signs of head trauma.] EYES: [PERRLA, EOMI, conjunctiva and sclera normal.] ENT: [Hearing grossly intact, normal oropharynx.] NECK: [Supple without JVD. There is no tenderness, lymphadenopathy, or masses. No thyromegaly. Normal carotid upstrokes without bruits.] LUNGS: [Clear breath sounds bilaterally. . No wheezes, or rhonchi.] HEART: [Normal rate and rhythm. Normal S1 and S2 without murmurs, gallop or rub.] VASC: [Peripheral pulses +2 bilaterally.] ABD: [Bowel sounds normal, soft, nontender, no masses, no organomegaly. No audible bruits.] : [Not examined] LYMPH: [No lymphadenopathy noted.] EXT: [1+ LLE>RLE edema.] SKIN: [No rashes or lesions noted.] NEURO: [Awake, alert, and oriented x3. No focal sensory or strength deficits noted.] Laboratory: [ ] Hematology Labs: Test 08/31/25 05:13 Range/Units White Blood Count 8.7 4.8-10.8 K/uL Red Blood Count 4.27 4.00-5.50 MIL/uL Hemoglobin 13.1 12.0-16.0 g/dL Hematocrit 39.6 36-48 % Mean Corpuscular Volume 92.7 79-99 fL Mean Corpuscular Hemoglobin 30.7 27.0-33.0 pg Mean Corpuscular Hemoglobin Concent 33.1 32.0-36.0 g/dL Red Cell Distribution Width 13.2 11.0-15.5 % Platelet Count 228 130-400 K/uL Mean Platelet Volume 10.3 7.5-10.5 fL Nucleated Red Blood Cells 0.0 0.0-0.19 % Chemistry Labs: Test 08/31/25 05:27 08/31/25 05:13 08/30/25 06:10 08/30/25 00:14 Range/Units Whole Blood Glucose 118 H 70-110 MG/DL Sodium Level 142 136-145 mmol/L Potassium Level 4.1 3.5-5.1 mmol/L Chloride Level 107 101-111 mmol/L Carbon Dioxide Level 29 21-32 mmol/L Blood Urea Nitrogen 12 7-18 mg/dL Creatinine 0.8 0.5-1.0 mg/dL Glomerular Filtration Rate Calc 75 >90 mL/min Random Glucose 115 H 70-105 mg/dL Total Calcium 8.5 8.5-10.1 mg/dL Phosphorus Level 2.7 2.5-4.9 mg/dL Magnesium Level 2.10 1.80-2.40 mg/dL Troponin I High Sensitivity 100 *H 4-50 ng/L Test 08/29/25 09:26 Range/Units Total Bilirubin 0.7 0.2-1.0 mg/dL Aspartate Amino Transf (AST/SGOT) 33 10-37 U/L Alanine Aminotransferase (ALT/SGPT) 48 12-78 U/L Alkaline Phosphatase 73 50-136 U/L Total Protein 7.8 6.0-8.3 g/dL Albumin 3.9 3.5-5.0 g/dL Coagulation Labs: Test 08/30/25 18:00 Range/Units Activated Partial Thromboplast Time 56.1 H 26.3-35.5 SEC Diagnostics / Radiology: [Copy/Paste Echos/Imaging Report here] Impression and Plan: Hypertension Hyperlipidemia #Chest pain -The patient presented to ED endorsing left anterior chest pressure -Trop 20--166-- peaked at 587 and has down trended to 100 -Presenting ECG sinus bradycardia , no acute ischemia -The patient received loading dose of ASA 325 mg x1 -2D echo showed LVEF of 55-60% , indeterminate diastolic function with mild aortic regurgitation -c/w aspirin 81 mg qd, atorvastatin 40 mg qhs -CCTA normal #htn -hydralazine 50 mg tid and lisinopril 40 mg qd #New paroxysmal a-fib -Patient was noted with Afib with RVR on admission with VR in the 130-140s -improved after 20 mg IVP cardiazem in EMS -Current review of telemetry shows sinus rhythm 70 bpm -keep on telemetry and monitor / replace electrolytes as needed -eliquis 5 mg bid #HTN -Blood pressure is averaging 140-150s -avoid AV ana lilia blockers due to bradycardia -Continue hydralazine 50 mg tid and lisinopril 40 mg qd Thank you for this consult. I will sign off. She has an ouptatient venous doppler of lower extremities pending. ] MD DONNA Be DANIELLE M MD Aug 31, 2025 08:24
--- NOTE | 2025-08-31 08:29 | NUR ---
THIS AM DR. Ayaan THOMPSON ROUNDED, REPORTED TO MD PAIN TO LEFT KNEE AND RIGHT UPPER ARM. DID REPORT MORE SWELLING TO LEFT LEG IN COMPARISON TO RIGHT LEG. PER MD, SHE ALREADY SCHEDULED AN OUTPATIENT ULTRASOUND PROCEDURE FOR PATIENT BUT WILL TRY TO GET A SOONER APPOINTMENT FOR PATIENT. NO NEW ORDERS REGARDING SUCH. GABE LEVY MD ALSO ROUNDED AND REPORTED TO MD. MD ASSESSED PATIENT AT BEDSIDE. Addendum: 08/31/25 at 0845 by KRISS ALBA RN RN FROM CARDIOLOGY STANDPOINT, PATIENT MAY D/C HOME. TO BE D/C HOME ON HYDRALAZINE 50MG TID AND ELIQUIS 5MG BID.
[2025-08-31 11:40] VITALS: BP 138/67; PULSE 69; RESP 22; TEMP 98.5
--- NOTE | 2025-08-31 13:52 | HMCIMG ---
BILATERAL LOWER EXTREMITY VENOUS ULTRASOUND CLINICAL INDICATION: Calf tenderness TECHNIQUE: Duplex scan of the bilateral lower extremity venous system performed using B-Mode/Grayscale imaging and Doppler spectral analysis and color flow. COMPARISON: Bilateral lower extremity venous ultrasound study from 08/29/25 FINDINGS: Normal flow, phasicity, augmentation, and compression was observed in the bilateral common femoral, superficial femoral, popliteal, and posterior tibial veins. Edema is seen within the soft tissues in the left lower leg. IMPRESSION: No sonographic evidence of deep venous thrombosis involving the bilateral lower extremities. /[place]
[2025-08-31] MEDS ORDERED: ATOR40TA69 PO (14:49)
[2025-08-31] MEDS ORDERED: ASPI-1005 PO (14:49)
[2025-08-31] MEDS ORDERED: HYDR12.54 PO (14:49)
[2025-08-31] MEDS ORDERED: APIX5TAB PO (14:49)
[2025-08-31] MEDS ORDERED: LISI40TA15 PO (14:49)
[2025-08-31] MEDS ORDERED: HYDR25 PO (14:49)
--- NOTE | 2025-08-31 15:40 | DS ---
Discharge Summary Hospital Course Summary: Patient information: Name: Ramiro Freeman Date of : 1945 Admission date: 08/29/2025 Attending physician: Dr. Nico Franco Admitting diagnosis: Non ST-elevation ME, POA AFib with RVR, new onset, POA Elevated troponins, not POA Uncontrolled hypertension Low-grade fevers (99.1 F X2 in ED) Elevated BNP, slightly Lower extremity edema L>R Hyperlipidemia Diabetes mellitus with hyperglycemia, A1c 6.3 On 08/29/2025 Elevated PTT Course in hospital: Ms. Moss is a 80-year-old female with a history of hyperlipidemia, hypertension, hypercholesteremia and heart disease who [place] [facility] [place] for evaluation of chest pressure onset an hour and a half [employer]. When she arrived, the EMS reports a heart rate in the 160s to 200s, AFib with RVR. EMS administered 20 mg of Cardizem and a 400 bolus of NS. The Patient does not report using blood thinners and denies having ever had A-fib. After receiving medication from EMS, the patient reports that their chest pressure has subsided and heart rate improved to 80s bpm. She denied any upper respiratory symptoms, and any shortness of breath.The patient reported that she was referred to Dr. Benedict Gregg, hogshead hand for uncontrolled hypertension 2 months ago. She reports she takes her medications as prescribed. She reports that she was prescribed on hydralazine 25 mg PO daily and her prior blood pressure medication was removed She does not know the name of the blood pressure medication that was stopped. She reported that she is also on lisinopril and simvastatin. She states that the [facility]ogshead hand did an echocardiogram and carotid Dopplers which she was told that the were normal. In ED her vital signs are HR 80 bmp, RR 16 bmp, BP 121/62, 95% RA, 99.1 F. initial troponin 20. and her labs are Chemistry: Random Glucose 172, B-Natriuretic Peptide 116, Hematology: MPV 10.9, Coagulation: APTT 25.4, UA: Negative Nitrate & Negative Leukocyte Est, Chest X- Ray showed No acute cardiopulmonary pathology is evident. The patient received aspirin 325 mg p.o. The patient was admitted to the hospital for further management. After the admission her troponin levels increased from 20 to 166 so the patient was started on heparin drip. Cardiology was consulted and he recommended CCTA and increased hydralazine 25mg bid to 50mg tid, c/w lisinopril 40mg qd. She also had a chest X-ray which is normal. She also had swelling of her legs (left> right). We ordered an echocardiogram which showed LVEF is 55- 60%. Arterial ultrasound of both lower extremities showed mild intimal wall thickening and multilevel atherosclerosis in both lower limb arteries, both lower limb arteries demonstrate triphasic to biphasic waveforms in all arteries, no flow limiting lesions. Venous doppler study showed no evidence of DVT. She also complained of constipation and we added colace and lactulose which relieved her constipation. Over time had troponin levels were downtrended. She had coronary CT angiogram on 08/30/2025 which showed absence of CAD. After the coronary CT angiogram cardiology saw the patient they added apixiban and they cleared her for discharge. On 08/31/2025, she complained of pain in her left knee and right arm. She unable to move her right shoulder. Her pain is relieved with tylenol. We did a US venous doppler of upper extremity which showed no evidence of DVT. For left lower extremity pain cardiology wanted to do an outpatient venous doppler of lower extremities. We also added hydrochlorothiazide 12.5 mg for edema of lower limbs. She is medically stable and ready for discharge. So we discharged her. Card Cutter Helper(s): CONSULTATION REPORT Name: DOMINICK MOSS Acct: [id number] MR: [id number] : 1945 Admit Date: 08/29/25 DANIELLE GREGG MD [address] [address] [facility] CARDIOLOGY CONSULTATION NOTE Date Patient Seen: Aug 29, 2025 Time of Visit: 13:41 Reason for Consultation: [chest pain ] History of Present Illness: [Patient is a 80 yo F with PMH peripheral edema LLE>RLE, HTN who called EMS for chest pain. Upon arrival, she was noted to be in A-fib RVR and converted to sinus bradycardia after 20 mg IV cardiazem was given. Trop has risen since admission 20--166--587. ECG no ST-T changes. She has CACs RCA of 14. She has a carlton echo. ] Past Medical History: [ ] Past Surgical History: [ ] Family History: [ ] Social History: [ ] Habits: [Never] smoker. [Denies] alcohol consumption. [Denies] illicit drug use Home Meds: [ ] Current Meds: [ ] Review of Systems: CONST: [No fever, fatigue, or weight changes.] EYES: [No recent vision problems.] ENT: [No congestion, ear pain, or sore throat.] C/V: [No chest pain, palpitations, or edema.] RESP: [No cough, congestion, wheezing or shortness of breath.] GI: [No abdominal pain, nausea, vomiting, constipation, or diarrhea.] : [No incontinence or dysuria.] SKIN: [No rash.] NEURO: [No headache, focal numbness or weakness, dizziness, or seizures.] PSYCH: [No depression or anxiety.] HEME: [No abnormal bruising or bleeding.] LYMPH: [No swollen glands.] Physical Examination: GENERAL: [No acute distress.] HEAD: [Normal with no signs of head trauma.] EYES: [PERRLA, EOMI, conjunctiva and sclera normal.] ENT: [Hearing grossly intact, normal oropharynx.] NECK: [Supple without JVD. There is no tenderness, lymphadenopathy, or masses. No thyromegaly. Normal carotid upstrokes without bruits.] LUNGS: [Clear breath sounds bilaterally. There are right basilar rales one third of the way up the chest. No wheezes, or rhonchi.] HEART: [Normal rate and rhythm. Normal S1 and S2 without mumurs, gallop or rub.] VASC: [Peripheral pulses +2 bilaterally.] ABD: [Bowel sounds normal, soft, nontender, no masses, no organomegaly. No audible bruits.] : [Not examined] LYMPH: [No lymphadenopathy noted.] EXT: [1+ LLE>RLE edema.] SKIN: [No rashes or lesions noted.] NEURO: [Awake, alert, and oriented x3. No focal sensory or strength deficits noted.] Vital Signs (last 8hr) Date Time Temp Pulse Resp B/P (MAP) Pulse Ox O2 Delivery O2 Flow Rate FiO2 08/29/25 13:25 58 184/64 08/29/25 11:39 97.9 08/29/25 11:00 57 14 164/75 97 Room Air 08/29/25 10:00 56 14 165/77 95 Room Air 08/29/25 09:31 98.4 62 15 164/63 98 Room Air 08/29/25 09:21 Room Air* 0 21 08/29/25 08:34 98.2 56 15 165/62 97 Room Air* 0 21 08/29/25 06:47 53 14 154/54 95 Room Air* 0 21 Laboratory: [ ] Hematology Labs: Test 08/29/25 09:26 08/29/25 00:17 Range/Units White Blood Count 9.0 4.8-10.8 K/uL Red Blood Count 4.76 4.00-5.50 MIL/uL Hemoglobin 14.5 12.0-16.0 g/dL Hematocrit 43.3 36-48 % Mean Corpuscular Volume 91.0 79-99 fL Mean Corpuscular Hemoglobin 30.5 27.0-33.0 pg Mean Corpuscular Hemoglobin Concent 33.5 32.0-36.0 g/dL Red Cell Distribution Width 13.2 11.0-15.5 % Platelet Count 247 130-400 K/uL Mean Platelet Volume 10.3 7.5-10.5 fL Nucleated Red Blood Cells 0.0 0.0-0.19 % Immature Granulocyte % (Auto) 0.3 0-1 % Neutrophils (%) (Auto) 63.1 40.0-77.0 % Lymphocytes (%) (Auto) 28.7 21.0-51.0 % Monocytes (%) (Auto) 5.5 3.0-13.0 % Eosinophils (%) (Auto) 1.8 0.0-8.0 % Basophils (%) (Auto) 0.6 0.0-5.0 % Neutrophils # (Auto) 4.6 1.8-7.7 K/uL Lymphocytes # (Auto) 2.1 1.0-4.8 K/uL Monocytes # (Auto) 0.4 0.1-1.0 K/uL Eosinophils # (Auto) 0.13 0.00-0.70 K/uL Basophils # (Auto) 0.04 0.00-0.20 K/uL Absolute Immature Granulocyte (auto 0.02 0-1 K/uL Chemistry Labs: Test 08/29/25 11:24 08/29/25 09:26 08/29/25 00:17 Range/Units Whole Blood Glucose 115 H 70-110 MG/DL Sodium Level 139 136-145 mmol/L Potassium Level 4.0 3.5-5.1 mmol/L Chloride Level 103 101-111 mmol/L Carbon Dioxide Level 29 21-32 mmol/L Blood Urea Nitrogen 11 7-18 mg/dL Creatinine 0.8 0.5-1.0 mg/dL Glomerular Filtration Rate Calc 75 >90 mL/min Random Glucose 117 H 70-105 mg/dL Total Calcium 9.2 8.5-10.1 mg/dL Phosphorus Level 2.9 2.5-4.9 mg/dL Magnesium Level 2.30 1.80-2.40 mg/dL Total Bilirubin 0.7 0.2-1.0 mg/dL Aspartate Amino Transf (AST/SGOT) 33 10-37 U/L Alanine Aminotransferase (ALT/SGPT) 48 12-78 U/L Alkaline Phosphatase 73 50-136 U/L Troponin I High Sensitivity 587 *H 4-50 ng/L Total Protein 7.8 6.0-8.3 g/dL Albumin 3.9 3.5-5.0 g/dL Hemoglobin A1c 6.3 H 4.0-6.0 % Estimated Average Glucose (eAG) 134 H 70-126 mg/dL Total Creatine Kinase 52 21-232 U/L B-Type Natriuretic Peptide 116 H 0-100 pg/mL Thyroid Stimulating Hormone (TSH) 2.21 0.36-3.74 uIU/mL Coagulation Labs: Test 08/29/25 11:08 08/29/25 00:17 Range/Units Activated Partial Thromboplast Time > 139.0 #*H 26.3-35.5 SEC Prothrombin Time 10.6 9.6-11.6 SEC Prothromb Time International Ratio 1.00 0.85-1.15 Diagnostics / Radiology: [Copy/Paste Echos/Imaging Report here] Assessment: [ ] Plan: [ #Chest pain -Trop 20--166--589, will trend troponin -s/p aspirin load 325 mg x1 -c/w aspirin 81 mg qd, atorvastatin 40 mg qhs, heparin gtt -ECG no ST-T changes -2d echo is normal -CCTA ordered for AM, baseline HR is bradycardia #New paroxysmal a-fib -improved after 20 mg IVP cardiazem in EMS and now sinus bradycardia #HTN -avoid AV ana lilia blockers due to bradycardia -increased hydralazine 25 mg bid to 50 mg tid, c/w lisinopril 40 mg qd Thank you for this consult. We will follow along. Danielle Gregg MD] DANIELLE GREGG MD Aug 29, 2025 13:46 Electronically Signed by: DANIELLE GREGG MD08/29/25 1358 Electronically Co-Signed by: Procedure(s): [facility] [address] [place] [id number] IMAGING REPORT Signed PATIENT: DOMINICK MOSS MR#: [id number] : 1945 SEX: F AGE: 80 LOCATION: EDH ORDER STATUS: REG ER REPORT#: [id number] SERVICE REASON: cp ORDERING PHYSICIAN: ANNY BECERRA PROCEDURE: CXR1VW - CHEST 1VW EXAM: CR Chest, single view CLINICAL HISTORY: Chest pain COMPARISON: None FINDINGS: The lungs show no infiltrate or other acute findings. No pleural effusion or pneumothorax. The cardiomediastinal silhouette is within normal limits. No acute osseous abnormality. Degenerative changes in the mid and lower thoracic spine. IMPRESSION: No acute cardiopulmonary pathology is evident. /[place] DICTATED BY: FLAKITA MENARD Jr., MD DATE: 08/29/25301 ELECTRONICALLY SIGNED BY: FLAKITA MENARD Jr., MD DATE: 08/29/25301 [facility] [address] [place] [id number] IMAGING REPORT Signed PATIENT: DOMINICK MOSS MR#: [id number] : 1945 SEX: F AGE: 80 LOCATION: H ORDER STATUS: ADM IN REPORT#: [id number] SERVICE 0401 REASON: Chest pain, new onset Afib RVR, elevated trops ORDERING PHYSICIAN: BRIAN ELKINS PROCEDURE: ECHO [facility] - ECHO 2-D COMPLETE APPROVED REPORT EXAM: Two-dimensional and M-mode echocardiogram with Doppler and color Doppler. INDICATION ICD: AFIB RVR, elevated troponin Chest Pain 2D Dimensions RVDd 3.3 cm LVEF(%) 44.2 (>50%) LVED Vol(simp.) 91.0 mL IVSd 1.2 (0.7-1.1cm) FS(%) 22 % LVES Vol(simp.) 40.0 mL LVDd 4.1 (3.8-5.6cm) LA (2D) 3.7 (1.6-4.0cm) LVEF(%, simp.) 56 % PWd 0.9 (0.7-1.1cm) Ao Root(2D) 3.1 (2.0-3.7cm) LA ESV INDEX (BP) 39.88 mL/m2 LVDs 3.2 (2.5-4.0cm) LVOT diam 2.1 (1.8-2.4cm) IVC diam 2.4 cm Deformation Strain Apical 4 -18.6 % Apical 2 -17.1 % Apical 3 -18.5 % Global Strain -18.1 % M-Mode Dimensions EPSS 0.7 cm LA (MM) 3.8 (1.6-4.0cm) Ao Root(MM) 2.6 (2.0-3.7cm) Aortic Valve AoV Vmax 1.3 m/s Ao Peak GR 6.8 mmHg AoV VTI 0.3 m Ao Mean GR 3.8 mmHg Al P1/2T 535 ms Mitral Valve MV E Vmax 74.6 cm/s DECEL Time 197 ms MV A Vmax 88.5 cm/s P 1/2 T 60 ms E/A ratio 0.8 MVA (PHT) 3.7 cm2 TDI E/E' Medial 11.5 E/E' Lateral 9.3 Medial E' Peak V 6.46 cm/s Lateral E' Peak V 8.02 cm/s Pulmonary Valve PV Vmax 0.9 m/s PV VTI 0.22 m PV Mean GR 1.8 mmHg PV Peak GR 3.2 mmHg Tricuspid Valve TR Vmax 1.5 m/s RVSP 8.5 mmHg TR Peak GR 8.5 mmHg Left Ventricle The left ventricle is normal size. There is normal left ventricular wall thickness. LVEF is 55-60%. Indeterminate diastolic dysfunction. Right Ventricle The right ventricle is normal size. The right ventricular systolic function is normal. Atria The left atrium is mildly dilated. The right atrium size is normal. Aortic Valve The aortic valve is normal in structure. Mild aortic regurgitation. There is no aortic valvular stenosis. Mitral Valve The mitral valve is normal in structure. There is no evidence of significant mitral regurgitation. There is no mitral valve stenosis. Tricuspid Valve The tricuspid valve is normal in structure. There is no tricuspid valve regurgitation noted. Pulmonic Valve The pulmonary valve is normal in structure. There is no pulmonic valvular regurgitation. Great Vessels The aortic root is normal in size. IVC is dilated. Pericardium There is no pericardial effusion. Conclusion The left ventricle is normal size. LVEF is 55-60%. Indeterminate diastolic dysfunction. The right ventricle is normal size. The right ventricular systolic function is normal. The left atrium is mildly dilated. The right atrium size is normal. Mild aortic regurgitation. IVC is dilated. There is no pericardial effusion. DICTATED BY: DANIELLE GREGG MD DATE: 08/29/251208 ELECTRONICALLY SIGNED BY: DANIELLE GREGG MD DATE: 08/29/25 [address] [place] [address] [address] [phone] IMAGING REPORT Signed PATIENT: DOMINICK MOSS MR#: [id number] : 1945 SEX: F AGE: 80 LOCATION: 2BH ORDER 4 [facility]: [facility] REPORT#: [id number] SERVICE 9 REASON: PAD ORDERING PHYSICIAN: BRIAN ELKINS PROCEDURE: ART B LE - US ARTERIAL BILAT LOW EXT DUPL EXAMINATION: DUPLEX ULTRASOUND EXAMINATION OF THE BILATERAL LOWER EXTREMITY ARTERIES. CLINICAL HISTORY: Peripheral arterial disease. COMPARISON: None. FINDINGS: Peak systolic velocities within the right lower arteries are as follows: Common femoral artery: 65 cm/s. Superficial femoral artery: 127 cm/s at proximal, 98 cm/s at mid, and 105 cm/s at distal segments. Popliteal artery: 77 cm/s at proximal and 95 cm/s at distal segments. Posterior tibial artery: 121 cm/s. Anterior tibial artery: 66 cm/s. Dorsalis pedis artery: 41 cm/s. The right lower limb arteries demonstrate triphasic to biphasic waveforms in all arteries. Peak systolic velocities within the left lower arteries are as follows: Common femoral artery: 112 cm/s. Superficial femoral artery: 88 cm/s at proximal, 77 cm/s at mid, and 86 cm/s at distal segments. Popliteal artery: 75 cm/s at proximal and 75 cm/s at distal segments. Posterior tibial artery: 112 cm/s. Anterior tibial artery: 66 cm/s. Dorsalis pedis artery: 83 cm/s. The left lower limb arteries demonstrate triphasic to biphasic waveforms in all arteries. There is intimal wall thickening and multilevel atherosclerosis in both the lower limb arteries. IMPRESSION: Mild intimal wall thickening and multilevel atherosclerosis in both the lower limb arteries. Both lower limb arteries demonstrate triphasic to biphasic waveforms. No flow limiting lesions. /[place] DICTATED BY: FLAKITA MENARD Jr., MD DATE: 08/30/25651 ELECTRONICALLY SIGNED BY: FLAKITA MENARD Jr., MD DATE: 08/30/25651 [place] [phone] IMAGING REPORT Signed PATIENT: DOMINICK MOSS MR#: [id number] : 1945 SEX: F AGE: 80 LOCATION: 2BH ORDER 4 STATUS: ADM IN REPORT#: [id number] SERVICE 9 REASON: lower edema L>R ORDERING PHYSICIAN: BRIAN ELKINS PROCEDURE: VENOUS MATEO - US VENOUS DOPPLER BILATERAL EXAMINATION: Bilateral lower extremity venous Doppler ultrasound. INDICATION: lower edema L>R TECHNIQUE: Real-time grayscale, color Doppler, and spectral Doppler imaging performed of the deep venous system from the common femoral veins through the calf veins bilaterally. Vein compressibility assessed with probe pressure. COMPARISON: No previous venous doppler, arterial doppler 08/29/2025 FINDINGS: RIGHT LOWER LIMB: Deep veins, including right common femoral vein, great saphenous vein junction, right femoral vein (proximal, mid and distal CFV), right popliteal vein, right posterior tibial vein): Veins are patent and fully compressible. No intraluminal thrombus identified. Color Doppler: Normal spontaneous flow demonstrated. Spectral Doppler: Normal phasicity with respiration compression. Soft tissues: soft tissue edema is noted. LEFT LOWER LIMB: Deep veins, including left common femoral vein, great saphenous vein junction, left femoral (proximal, mid and distal), left popliteal vein, left posterior tibial vein): Veins are patent and fully compressible. No intraluminal thrombus identified. Color Doppler: Normal spontaneous flow demonstrated. Spectral Doppler: Normal phasicity with respiration. Soft tissues: soft tissue edema is noted Impression 1. No evidence of deep venous thrombosis in either lower extremity. 2. Normal bilateral venous Doppler study. 3. Bilateral soft tissue edema is noted. /[place] DICTATED BY: JAREN TORRES MD DATE: 08/29/251735 ELECTRONICALLY SIGNED BY: JAREN TORRES MD DATE: 08/29/251735 OPERATIVE REPORT Name: DOMINICK MOSS Acct: [id number] MR: [id number] : 1945 Admit Date: 08/29/25 DANIELLE GREGG MD [place] [address] [place] [id number] rad REPORT: CORNARY CT ANGIO RADIOLOGY REPORT: CORONARY CT ANGIOGRAPHY DATE: Aug 30, 2025 QUALITY: Excellent CLINICAL HISTORY AND INDICATION: [ elevated Troponin ] TECHNIQUE: After obtaining a preliminary mailmaster image, contrast imaging performed on an Aquillon [id number] scanner. A dedicated, limited window, coronary imaging protocol was used, with single breath-hold, retrospective ECG gating, and automated arrhythmia rejection. 100 cc of low osmolar contrast agent: Omnipaque 350 was delivered via a 18-gauge IV catheter in the right antecubital fossa, using a power injector and followed by 60 cc of normal saline bolus as a chaser. Collimated images were reformatted at 0.5 mm intervals, and sent to an offline independent workstation for interpretation, using 3D anatomic reconstructions: Curved multiplanar reconstructions, maximum intensity projections, and mult iplanar imaging. No metoprolol was administered prior to scanning due to low baseline heart rate. No SL nitroglycerin was given. CORONARY ARTERY DESCRIPTIONS: The coronary arteries arise in normal position. Left main coronary artery: Normal caliber vessel that bifurcates into the LAD and LCx. No stenosis. Left anterior descending coronary artery: Normal caliber vessel and gives rise to diagonal and septal branches. No stenosis. Left circumflex coronary artery: Normal caliber, nondominant and gives rise to a large OM branch. No stenosis. Right coronary artery: Large, dominant vessel giving rise to the PL and PDA branches. No stenosis. CAD-RADs: 0, absence of CAD. Thoracic Aorta: Normal diameter. Danielle Gregg MD Cardiovascular Disease [facility] DANIELLE GREGG MD Aug 30, 2025 18:16 Electronically Signed by: DANIELLE GREGG MD08/30/25 1812 Electronically Co-Signed by: [place] [id number] IMAGING REPORT Signed PATIENT: DOMINICK MOSS MR#: [id number] : 1945 SEX: F AGE: 80 LOCATION: 2AH ORDER 1223 STATUS: ADM IN REPORT#: [id number] SERVICE 1221 REASON: calf tenderness to bilateral lower extremities, RLE more than LLE ORDERING PHYSICIAN: NICO FRANCO MD PROCEDURE: VENOUS MATEO - US VENOUS DOPPLER BILATERAL BILATERAL LOWER EXTREMITY VENOUS ULTRASOUND CLINICAL INDICATION: Calf tenderness TECHNIQUE: Duplex scan of the bilateral lower extremity venous system performed using B-Mode/Grayscale imaging and Doppler spectral analysis and color flow. COMPARISON: Bilateral lower extremity venous ultrasound study from 08/29/25 FINDINGS: Normal flow, phasicity, augmentation, and compression was observed in the bilateral common femoral, superficial femoral, popliteal, and posterior tibial veins. Edema is seen within the soft tissues in the left lower leg. IMPRESSION: No sonographic evidence of deep venous thrombosis involving the bilateral lower extremities. 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 Her troponin levels are 20>116>587>285>100. Her EKG shows no ST-T changes. She is on heparin protocol. Cardiology is consulted and they recommended CCTA. CCTA is normal. Cardiology cleared the patient for discharge and they advised her to follow up with them in the clinic. So we discharged her. AFib with RVR, new onset, POA, On admission her EKG show Afib with RVR with HR of 100's to 160's. It got relieved after administration of 20mg cardizem and NS. Now her EKG is normal. Cardiology added apixaban cleared the patient for discharge and they advised her to follow up with them in the clinic. Elevated troponins, not POA Her troponin levels are 20>116>587>285>100. Cardiology is consulted and they recommended CCTA. CCTA is normal. Cardiology cleared the patient for discharge and they advised her to follow up with them in the clinic. Uncontrolled hypertension On presentation her blood pressure is 173/81. Cardiology was consulted and the recommended hydralazine 25 to 50mg TID and lisinopril 40mg qd. Today her blood pressure is 138/67. Continue hydralazine 50mg TID and lisinopril 40mg qd. Low-grade fevers (99.1 F X2 in ED) Her vitals show her temperature today is 98.4. Elevated BNP, slightly Her BNP is 116. Echocardiogram show LVEF is 55 to 60%. Lower extremity edema L>R On examination there is edema of the left leg. Her BNP is 116. Echocardiogram show LVEF is 55 to 60%. Venous doppler of lower limbs showed no DVT. Arterial US is mild intimal wall thickening and multilevel atherosclerosis in both the lower limb arteries, both lower limb arteries demonstrate triphasic to biphasic waveforms, no flow-limiting lesions. We added hydrochlorothiazide 12.5mg daily. Left knee pain Today she complained of left knee pain. Her pain got resolved with tylenol. Cardiology scheduled an outpatient US doppler of both lower limbs. 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 She is unable to move her arm. Her pain is controlled with tylenol. Hyperlipidemia Continue Atorvastatin 40mg. Diabetes mellitus with hyperglycemia, A1c 6.3 On 08/29/2025 Today her blood glucose level is 132. Elevated PTT She is on heparin for NSTEMI. PTT levels are 25.4->139.0-103.3-70.0-73.2-58.9-56.1. Heparin is stopped. Repeat the labs as an outpatient. Constipation She complained of constipation. She was treated with Colace and lactulose. Discharge Instructions: Discharge date: 08/31/2025 Discharge instructions: 1) Follow up with primary care physician within 2 to 3 days after discharge. 2) Follow up [facility] cardiology within 2 to 3 weeks after discharge. 3) You will be sent home with hydrochlorthiazide 12.5mg for 30 days to decrease the leg swelling. Please follow up with your PCP and cardiolgy to discuss about the continuation of this medication. 4) Continue all medications as prescribed. Do not discontinue or change doses without consulting your PCP. 5) Gradually resume normal activities as tolerated. 6) Continue a balanced diet. 7) Seek immediate medical attention if you experience chest pain, SOB, or severe headache. Discharge to: Home Condition on discharge: Stable Home Medications: Reported Medications Simvastatin (Simvastatin) 20 Mg Tablet, 20 MG PO HS, TAB 08/29/25 Hydralazine HCl (Hydralazine HCl) 25 Mg Tablet, 25 MG PO BIDMEALS, TAB 08/29/25 Lisinopril (Lisinopril) 40 Mg Tablet, 40 MG PO DAILY, TAB 08/29/25 New Medications: Hydrochlorothiazide (Hydrochlorothiazide) 12.5 Mg Tablet 1 TAB PO DAILY for 30 Days, #30 TAB 0 Refills Apixaban (Eliquis) 5 Mg Tablet 5 MG PO BID, #60 TAB Aspirin (Aspirin 81MG Chew Tab) 81 Mg Tab.chew 81 MG PO DAILY, #30 TAB.CHEW Atorvastatin Calcium (Lipitor) 40 Mg Tablet 40 MG PO HS, #30 TAB Hydralazine HCl (Apresoline) 25 Mg Tab 50 MG PO TID, #90 TAB Lisinopril (Lisinopril) 40 Mg Tablet 40 MG PO DAILY, #30 TAB Discontinued Medications: Hydralazine HCl (Hydralazine HCl) 25 Mg Tablet 25 MG PO BIDMEALS, TAB Lisinopril (Lisinopril) 40 Mg Tablet 40 MG PO DAILY, TAB Simvastatin (Simvastatin) 20 Mg Tablet 20 MG PO HS, TAB Time spent arranging discharge: 1-30 minutes ATTESTATION BY PHYSICIAN I have seen and examined the patient. I reviewed the documentation, medical decision making, and treatment plan as noted by the resident physician above. I agree with the findings and plan of care. NICO FRANCO MD, AKSHAY MD Aug 31, 2025 15:40
[2025-08-31 16:00] VITALS: BP 155/75; PULSE 69; RESP 22; TEMP 99.3
== END 2025-08-31 18:54 | disposition home or self-care (01) | DRG 282 ==
LOC: EDH 23:49 → EDBD 23:49 → EDHIP 08-29 02:25 → 2BH 08-29 07:56 → 2AH 08-30 17:00
PROVIDERS: ADMIT Internal Medicine Sleep Medicine; ATTEND Internal Medicine Sleep Medicine
DX: I21.4 Non-ST elevation (NSTEMI) myocardial infarction (principal); E11.65 Type 2 diabetes mellitus with hyperglycemia; Z79.01 Long term (current) use of anticoagulants; I10 Essential (primary) hypertension; I35.1 Nonrheumatic aortic (valve) insufficiency; I48.0 Paroxysmal atrial fibrillation; E78.00 Pure hypercholesterolemia, unspecified; K59.00 Constipation, unspecified; Z20.822 Contact with and (suspected) exposure to COVID-19; R00.1 Bradycardia, unspecified; M75.01 Adhesive capsulitis of right shoulder; R79.1 Abnormal coagulation profile; Z79.82 Long term (current) use of aspirin; Z79.899 Other long term (current) drug therapy
CPT/HCPCS: 36415; 71045; 75574; 80048; 80053; 81003; 82550; 82948; 83036; 83735; 83880; 84100; 84443; 84484; 85025; 85027; 85610; 85730; 87635; 87804; 87880; 93005; 93306; 93356; 93925; 93970; 99285; G0378; J1644; Q9967